=== PATIENT | female | born 1965 | race Caucasian/White ===

== ENCOUNTER → 2017-12-30 16:15 | Outpatient (REF) | payer BC, SELFPAY ==
[2017-12-30 20:51] LABS: Anion Gap 12.3 mmol/L (3-11); BUN 19 mg/dL (7-18); CO2 25.7 mmol/L (21.0-32.0); CREATININE 0.91 mg/dL (0.55-1.02); Calcium 9.4 mg/dL (8.5-10.1); Chloride 101 mmol/L (98-107); Glucose 102 mg/dL (70-100); Potassium 3.6 mmol/L (3.5-5.1); Sodium 139 mmol/L (136-145); TSH (W/Ref FT4) 1.12 uIU/mL (0.358-3.74)
== END ==
LOC: NCHCN 16:15
PROVIDERS: PCP Family Medicine; Visit Provider Family Medicine
DX: E03.9 Hypothyroidism, unspecified (principal); I10 Essential (primary) hypertension
CPT/HCPCS: 80048; 84443

== ENCOUNTER 2018-01-16 01:54 | Outpatient (CLI) | payer BC, SELFPAY ==
--- NOTE | 2018-01-16 15:45 | DI.MAMMO_ITS ---
SYMPTOMS/DIAGNOSIS: SCREENING, Z12.31 MAMMOGRAM: Mammograms were interpreted according to the usual protocol including computer analysis with CAD system, tomosynthesis and C view imaging. Comparison is made with exams from 2012 through 2017. The breasts are composed of scattered fibroglandular densities, breast density Category B. No suspicious masses or suspicious microcalcifications are seen. There has been no significant change. IMPRESSION: Category I B, negative mammogram. Routine screening is recommended. [facility] ASSESSMENT OF FINDINGS: Negative. Category 1. Patient will receive a letter notifying them of these results. BI-RADS category B. There are scattered areas of fibroglandular density.
== END 2018-01-16 02:14 ==
PROVIDERS: PCP Family Medicine; Visit Provider Family Medicine
DX: Z12.31 Encounter for screening mammogram for malignant neoplasm of breast (principal)
CPT/HCPCS: 77063; 77067

== ENCOUNTER 2019-01-02 12:23 | Outpatient (REF) | payer BC, SELFPAY ==
[2019-01-02 14:00] LABS: Hemoglobin A1C 5.6 % (4.5-6.2)
[2019-01-02 14:22] LABS: Anion Gap 12.9 mmol/L (3-11); BUN 18 mg/dL (7-18); CO2 25.1 mmol/L (21.0-32.0); CREATININE 0.79 mg/dL (0.55-1.02); Calcium 9.4 mg/dL (8.5-10.1); Calculated LDL 161 mg/dL; Chloride 103 mmol/L (98-107); Cholesterol 231 mg/dL (50-200); Glucose 112 mg/dL (70-100); HDL Cholesterol 52 mg/dL (40-60); Potassium 3.8 mmol/L (3.5-5.1); Sodium 141 mmol/L (136-145); TSH (W/Ref FT4) 1.33 uIU/mL (0.36-3.74); Triglyceride 93 mg/dL (30-150)
== END 2019-01-02 12:43 ==
LOC: NCHCN 12:23
PROVIDERS: PCP Family Medicine; Visit Provider Family Medicine
DX: I10 Essential (primary) hypertension (principal); E03.9 Hypothyroidism, unspecified; R73.03 Prediabetes
CPT/HCPCS: 80048; 80061; 83721; 83036; 84443

== ENCOUNTER 2019-01-23 01:32 | Outpatient (CLI) | payer BC, SELFPAY ==
--- NOTE | 2019-01-23 15:52 | DI.MAMMO_ITS ---
SYMPTOM/DIAGNOSIS: SCREENING, Z12.31 MAMMOGRAMS: Mammograms were interpreted according to the usual protocol including computer analysis with CAD system, tomosynthesis and C view imaging. The breast tissue is of moderate radiodensity. There is no evidence of a dominant mass. There are no suspicious calcifications and there has been no significant interval change when compared with prior images. IMPRESSION: No evidence of malignancy, category 1. Yearly screening mammography is recommended. Breast density, Category B. [facility] ASSESSMENT OF FINDINGS: Negative. Category 1. Patient will receive a letter notifying them of these results. BI-RADS category B. There are scattered areas of fibroglandular density.
== END 2019-01-23 01:52 ==
PROVIDERS: PCP Family Medicine; Visit Provider Family Medicine
DX: Z12.31 Encounter for screening mammogram for malignant neoplasm of breast (principal)
CPT/HCPCS: 77063; 77067

== ENCOUNTER 2020-01-29 15:08 | Outpatient (REF) | payer BC, SELFPAY ==
[2020-01-29 21:44] LABS: Hemoglobin A1C 5.5 % (<5.7)
[2020-01-29 22:22] LABS: Anion Gap 11.4 mmol/L (3-11); BUN 13 mg/dL (7-18); CO2 27.6 mmol/L (21.0-32.0); CREATININE 0.82 mg/dL (0.55-1.02); Chloride 99 mmol/L (98-107); Glucose 91 mg/dL (74-106); Potassium 3.5 mmol/L (3.5-5.1); Sodium 138 mmol/L (136-145)
== END 2020-01-29 15:28 ==
LOC: NCHCN 15:08
PROVIDERS: PCP Family Medicine; Visit Provider Family Medicine
DX: E03.9 Hypothyroidism, unspecified (principal); I10 Essential (primary) hypertension; R73.03 Prediabetes
CPT/HCPCS: 80048; 83036; 84443

== ENCOUNTER 2020-12-29 17:51 | Outpatient (REF) | payer BC, SELFPAY ==
[2020-12-29 16:01] LABS: Anion Gap 10.1 mmol/L (3-11); BUN 18 mg/dL (7-18); CO2 28.9 mmol/L (21.0-32.0); CREATININE 0.8 mg/dL (0.55-1.02); Calcium 9.3 mg/dL (8.5-10.1); Chloride 103 mmol/L (98-107); Glucose 113 mg/dL (74-106); Potassium 3.8 mmol/L (3.5-5.1); Sodium 142 mmol/L (136-145)
[2020-12-29 16:07] LABS: Hemoglobin A1C 5.9 % (<5.7)
== END 2020-12-29 17:52 | disposition home or self-care (01) ==
LOC: NCHCN 17:51
PROVIDERS: PCP Family Medicine; Visit Provider Family Medicine
DX: I10 Essential (primary) hypertension (principal); R73.03 Prediabetes
CPT/HCPCS: 80048; 83036

== ENCOUNTER 2021-02-03 19:45 | Outpatient (REF) | payer BC, SELFPAY ==
--- NOTE | 2021-02-03 14:15 | PAPFT_PTH ---
PATIENT: Trace Villegas LOC: [facility] U#:[id number] AGE/SX: 55/F ROOM: RE02/03/[address]: Lili Miller : 1965 BED: DIS: 02/03/2021 SPEC #: [id number] RECD: 02/06/21 13:03 STATUS: DARLINE REJamie #: [id number] EMANUEL: 02/03/21 14:[address]: Lili Miller DEPT: [facility] Cytology RECD BY: Nadege Morgan Tissues: 1 - CX/ENDOCX FOR PAP SMEARS Procedures: PAP THIN PREP/UVM Screening HPV DNA PROBE Comments: [id number]
[2021-02-03 19:57] LABS: TSH (W/Ref FT4) 0.82 uIU/mL (0.36-3.74)
== END 2021-02-03 19:46 | disposition home or self-care (01) ==
LOC: NCHCN 19:45
PROVIDERS: PCP Family Medicine; Visit Provider Family Medicine
DX: Z12.4 Encounter for screening for malignant neoplasm of cervix (principal); Z11.51 Encounter for screening for human papillomavirus (HPV); Z01.419 Encounter for gynecological examination (general) (routine) without abnormal findings; Z00.00 Encounter for general adult medical examination without abnormal findings; E03.9 Hypothyroidism, unspecified
CPT/HCPCS: 88142; 84443; 87624

== ENCOUNTER 2021-03-23 01:09 | Outpatient (CLI) | payer BC, SELFPAY ==
--- NOTE | 2021-03-23 07:45 | DI.MAMMO_ITS ---
Exam(s) MAMMO SCREENING EXAM: MAMMO SCREENING CLINICAL HISTORY: SCREENING FOR BREAST CANCER Z12.31 TECHNIQUE: Mammograms were interpreted according to the usual protocol including computer analysis w [employer] CAD system, tomosynthesis and C-view imaging. COMPARISON: 2010 through 2018 FINDINGS: The breasts are composed of scattered fibroglandular densities, Breast Density category B. No suspicious masses or suspicious microcalcifications are seen. No skin thickening or abnormal axillary lymph nodes are seen. There has been no significant change from prior exams. IMPRESSION: BI-RADS Category 1, Negative mammogram Yearly screening mammography is recommended. Breast Density - Category B, scattered fibroglandular densities. A negative radiographic report should not delay biopsy if a dominant or clinically suspicious mass is present. Up to ten percent of cancers are not identified on mammography. A negative report may reinforce clinical impression. Adenosis and dense breasts may obscure an underlying neoplasm. False positive reports average 6 to 10%. Patient will receive a letter notifying them of these results.
== END 2021-03-23 01:29 ==
PROVIDERS: PCP Family Medicine; Visit Provider Family Medicine
DX: Z12.31 Encounter for screening mammogram for malignant neoplasm of breast (principal)
CPT/HCPCS: 77063; 77067

== ENCOUNTER 2021-04-12 00:48 | Outpatient (CLI) | payer BC, SELFPAY ==
--- NOTE | 2021-04-12 07:39 | DI.RAD_ITS ---
Exam(s) XR PELVIS AP EXAM: XR PELVIS AP CLINICAL HISTORY: iud migration,[id number]. TECHNIQUE: 2D digital imaging was performed. COMPARISON: No exams were available for comparison FINDINGS: BONES: No acute fracture is present. No bony destructive lesion is seen. JOINTS: No dislocation present. No joint space narrowing is present. Mild degenerative changes are se en in the lower lumbar spine. SOFT TISSUE: Normal. No IUD is identified. IMPRESSION: No IUD is visualized. Further evaluation may be obtained with a pelvic ultrasound, KUB or CT scan of the abdomen and pelvis. DATA REPOSITORY: RADIATION DOSE DELIVERED:
== END 2021-04-12 01:08 ==
PROVIDERS: PCP Family Medicine; Visit Provider Obstetrics & Gynecology
DX: T83.32XA Displacement of intrauterine contraceptive device, initial encounter (principal)
CPT/HCPCS: 72170

== ENCOUNTER 2021-07-18 01:49 | Outpatient (CLI) | payer BC, SELFPAY ==
--- NOTE | 2021-07-18 14:31 | DI.US_ITS ---
APPROVED REPORT EXAM: Comprehensive 2D, Doppler, and color-flow Echocardiogram Patient Location: Out-Patient Library Circulation Assistant: Joy Kurtz RDCS (AE) Indications: Tricuspid insufficiency Other Information Study Quality: Adequate Conclusion Normal left ventricular wall thickness and chamber size. Estimated ejection fraction is 60%. Wall m otion is normal Normal right ventricular size and systolic function Both atria are normal in size The aortic valve is trileaflet without stenosis or regurgitation Mild mitral annular calcification. Mild mitral regurgitation Normal tricuspid valve with trace to mild regurgitation. Estimated right ventricular systolic pressu re is normal at 25 mmHg Dilated ascending aorta measuring 3.74 cm Wall motion Left Ventricle The left ventricle is normal size. The left ventricular systolic function is normal. The left ventric ular ejection fraction is within the normal range. There is normal left ventricular wall thickness. T here is normal LV segmental wall motion. There is no ventricular septal defect visualized. LVEF is 60 %. Right Ventricle The right ventricle is normal size. The right ventricular systolic function is normal .The RVSP is 24 .9 mmHg. Atria The left atrium size is normal. The right atrium size is normal. The interatrial septum is intact wit h no evidence for an atrial septal defect. Aortic Valve The aortic valve is normal in structure. Aortic valve is trileaflet. There is no aortic valvular sten osis. No aortic regurgitation is present. Mitral Valve Mild mitral annular calcification. No evidence of mitral valve stenosis. Mild mitral regurgitation. Tricuspid Valve The tricuspid valve is normal in structure. There is no tricuspid valve stenosis. Trace to mild tricu spid regurgitation. Pulmonic Valve The pulmonary valve is normal in structure. There is no pulmonic valvular stenosis. Trace pulmonic re gurgitation. Great Vessels The aortic root is normal in size. The ascending aorta is mildly dilated.3.74 cm Aortic arch is kristen l in caliber. IVC is normal in size and collapses >50% with inspiration. Pericardium There is no pericardial effusion. 2D Dimensions IVSD d PLAX 1.01 cm F: 0.6-1.0 LV Vol A2C d MOD 145.3 mL LVPW d PLAX 1.03 cm F: 0.6 - 1.0 LV Vol A4C d MOD 132.7 mL LVID d PLAX 4.86 cm F: 3.8 - 5.2 LA vol/ BSA A2C s A-L 30.9 mL/m2 LVDs 3.30 cm F: 2.2 - 3.5 LA vol/ BSA A4C s A-L 27.4 mL/m2 Ao Root d 2.99 cm F: 2.7 - 3.3 LA Vol/ BSA Biplane s A-L 29.8 mL/m2 RA Area A4C 14.04 cm2 LA Area A4C s MOD 19.92 cm2 RA Vol/ BSA A4C s A-L 15.8 mL/m2 LA Area A2C s MOD 20.64 cm2 Ao Asc Diam d 3.74 cm F: 2.3 - 3.1 LV EF A4C MOD 60.6 % LV EF Teichholz 60.0 % LV EF A2C MOD 60.6 % LVEF (Bermeo's) 60.97 % F: 54 - 74 LV EF Biplane MOD 61.0 % LV Volume 102.37 mL F: 46 - 106 SV 86.62 mL LV Volume Index 45.29 mL/m2 F: 29 - 61 SV Index 38.22 mL/m2 LV Vol Biplane MOD 142.1 mL FS 31.95 % M-Mode TAPSE 2.39 cm (M/F) >1.7 LV Diastology MV E' medial 0.130 (>0.07 m/s) E/A Ratio 1.3 LV E/e MED 6.60 (<14) MV E Vmax 0.86 (0.4-1.3 m/s) MV E' lateral 0.101 (>0.1 m/s) MV A Vmax 0.65 (0.4-1.3 m/s) LV E/e LAT 8.50 (<14) MV E/A Ratio 1.27 MV E/E' medial 6.62 MV E/E' lateral 8.54 Aortic Valve LVOT Area 2.99 cm2 AoV Area Vmax 2.24 cm2 LVOT Vmax 1.27 m/s AoV Area/ BSA (Vmax) 0.99 cm2/m2 LVOT Mean Americo. 0.78 m/s COOKIE Mean Americo. 2.07 cm2 LVOT Peak Grad 6.4 mmHg COOKIE Mean Americo. Index 0.91 cm2/m2 LVOT Mean Grad 3.0 mmHg LVOT VTI 0.293 m LVOT Diam s 1.95 cm AoV Vmax 1.69 m/s Velocity Ratio 0.75 AoV Mean Americo. 1.13 m/s AoV Peak Grad 11.5 mmHg LVOT SV 87.63 mL AoV Mean Grad 5.8 mmHg AoV VTI 0.360 m AoV Area VTI 2.43 cm2 AoV Area/ BSA (VTI) 1.07 cm/m2 Mitral Valve MV DT 191 (160-240 msec) MR Vmax 4.06 m/s MV PHT 55 msec MR VTI 1.466 m MV Area PHT 3.98 cm2 MR Peak Grad 65.9 mmHg MV VTI 0.332 m MR Mean Grad 47.9 mmHg MV Area VTI 2.64 (4.0-6.0 cm2) Pulmonary Valve PV Vmax 1.03 (0.5-1.5 m/s) RVOT Peak Gr. 1.41 mmHg PV Peak Grad 4.3 mmHg RVOT Mean Gr. 0.60 mmHg PV Mean Grad 2.2 mmHg RVOT VTI 0.119 m PV VTI 0.224 m RVOT Vmax 0.59 m/s Tricuspid Valve TR Peak Grad 21.9 mmHg TR Vmax 2.34 m/s RA Pressure 3.00 mmHg RVSP (TR) 24.9 mmHg
== END 2021-07-18 02:09 ==
PROVIDERS: PCP Family Medicine; Visit Provider Family Medicine
DX: I36.1 Nonrheumatic tricuspid (valve) insufficiency (principal); I77.819 Aortic ectasia, unspecified site
CPT/HCPCS: 93306

== ENCOUNTER 2022-02-07 14:14 | Outpatient (REF) | payer SELFPAY ==
[2022-02-07 16:31] LABS: Hemoglobin A1C 5.6 % (<5.7)
[2022-02-07 17:37] LABS: Anion Gap 11.1 mmol/L (3-11); BUN 21 mg/dL (7-18); CO2 26.9 mmol/L (21.0-32.0); CREATININE 0.8 mg/dL (0.55-1.02); Calcium 9.5 mg/dL (8.5-10.1); Chloride 99 mmol/L (98-107); Estimated GFR 86.42 (mL/min/1.73m2); Glucose 85 mg/dL (74-106); Potassium 3.4 mmol/L (3.5-5.1); Sodium 137 mmol/L (136-145)
[2022-02-07 17:56] LABS: FREE T4 0.78 ng/dL (0.76-1.46)
== END 2022-02-07 14:15 | disposition home or self-care (01) ==
LOC: NCHCN 14:14
PROVIDERS: PCP Family Medicine; Visit Provider Family Medicine
DX: E03.9 Hypothyroidism, unspecified (principal); R73.03 Prediabetes; I10 Essential (primary) hypertension
CPT/HCPCS: 80048; 83036; 84439; 84443

== ENCOUNTER 2022-08-07 01:23 | Outpatient (CLI) | payer BC, SELFPAY ==
--- NOTE | 2022-08-07 | DI.MAMMO_ITS ---
Exam(s) MG MAMMO DIAGNOSTIC BI US BREAST LT LIMITED EXAM: MG MAMMO DIAGNOSTIC BI and U/S breast LT limited CLINICAL HISTORY: DIAGNOSTIC, LT BREAST LUMP, N63.0. TECHNIQUE: Craniocaudal and mediolateral oblique Full Field Digital Mammography views of the left br east with Computer Aided Diagnosis followed by Tomosynthesis and left breast ultrasound. COMPARISON: Comparison is made with prior examinations. FINDINGS: Mammography/Tomosynthesis: Masses/Architectural Distortion: There is an ovoid faint opacity in the upper inner quadrant of the l eft breast corresponding to the palpable abnormality. It measures approximately 1.7 cm. It is ill-d efined with no associated microcalcifications. There are no areas of architectural distortion. Microcalcifictions: No suspicious pleomorphic-type are seen. Skin Thickening/Nipple Retraction: None. Limited left breast US: Echotexture: Normal appearance of the glandular tissue. Shadowing: No suspicious foci. Cyst: There is an ovoid hypoechoic 1.4 x 1.4 x 0.4 cm lesion just beneath the skin surface at the 11 o'clock position 10 cm from the nipple. This corresponds to the palpable abnormality and the mammogr aphic abnormality. There does appear to be a communication to the skin surface. It does not involve the underlying breast tissue. Solid lesions: None seen. Ductal dilation: None. IMPRESSION: 1. No definite evidence of malignancy is noted. 2. Well-circumscribed 1.4 cm lesion just beneath the skin surface corresponding to the palpable abnor mality. This may represent a benign lesion such as an epidermal inclusion cyst 3. A 3 month follow-up left breast ultrasound is recommended for re-evaluation. 4. Findings were discussed with the patient on the date of the examination. BI-RADS Category 3 - Probably Benign Finding: Recommend follow-up imaging in 3 months Breast Density - Category B - Scattered areas of fibroglandular density Breast density category C or D implies that the patient has dense breast tissue. Dense breast tissue is very common and is not abnormal but dense breast tissue can make it harder to find cancer on a ma mmogram. Also, dense breast tissue may increase their breast cancer risk. This information about the result of the mammogram report was provided to the patient to raise their awareness. Use this report when you speak with the patient about their risks for breast cancer, which includes their family hist ory. At that time, you may recommend for more screening tests (Ultrasound or MRI) as they might be us eful based on their risk. A negative radiographic report should not delay biopsy if a dominant or clinically suspicious mass is present. Up to ten percent of cancers are not identified on mammography. A negative report may reinforce clinical impression. Adenosis and dense breasts may obscure an underlying neoplasm. False positive reports average 6 to 10%. Patient will receive a letter notifying them of these results.
== END 2022-08-07 01:43 ==
PROVIDERS: PCP Family Medicine; Visit Provider Family Medicine
DX: N63.22 Unspecified lump in the left breast, upper inner quadrant (principal)
CPT/HCPCS: 76642; 77062; 77066; G0279

== ENCOUNTER 2022-08-17 15:39 | Outpatient (REF) | payer BC, SELFPAY ==
[2022-08-17 18:23] LABS: Hemoglobin A1C 5.8 % (<5.7)
[2022-08-17 18:32] LABS: Anion Gap 11.5 mmol/L (3-11); BUN 22 mg/dL (7-18); CO2 27.5 mmol/L (21.0-32.0); CREATININE 0.7 mg/dL (0.55-1.02); Chloride 101 mmol/L (98-107); Estimated GFR 101.44 (mL/min/1.73m2); Glucose 105 mg/dL (74-106); Potassium 3.6 mmol/L (3.5-5.1); Sodium 140 mmol/L (136-145); TSH (W/Ref FT4) 0.72 uIU/mL (0.36-3.74)
== END 2022-08-17 15:40 | disposition home or self-care (01) ==
LOC: NCHCN 15:39
PROVIDERS: PCP Family Medicine; Visit Provider Family Medicine
DX: E03.9 Hypothyroidism, unspecified (principal); R73.03 Prediabetes; I10 Essential (primary) hypertension
CPT/HCPCS: 80048; 83036; 84443

== ENCOUNTER 2023-05-15 16:07 | Outpatient (REF) | payer BC, SELFPAY ==
--- OUTSIDE RECORDS SUMMARY | 2023-05-15 16:11 | XMS_ITS | Continuity of Care Document ---
Author Name Unknown Organization [facility] Ambulatory Clinics Address [address] [place] [address] Encounter [facility] NBR [id number] Date(s): 05/08/22 - 05/08/22 [facility] Ambulatory Clinics [address], [place] [address] Encounter Diagnosis Viral upper respiratory illness(Discharge Diagnosis) - 05/08/22 Wheezing(Discharge Diagnosis) - 05/08/22 Discharge Disposition: Home or Self Care Attending Physician: Jessie Briceño PA-C Allergies, Adverse Reactions, Alerts No Known Medication Allergies Functional Status 05/08/22 Other exposure to Infectious Disease Non e Medications Advil 200 mg oral tablet 400 mg = 2 tab, Oral, every 4 hr, PRN as needed for fever, # 120 tab, 0 Refill(s) Start Date: 05/08/22 Status: Ordered amLODIPine 10 mg oral tablet 10 mg = 1 tab, Oral, Daily, # 30 tab, 0 Refill(s) Start Date: 05/08/22 Status: Ordered chlorthalidone 25 mg oral tablet 25 mg = 1 tab, Oral, Daily, # 30 tab, 0 Refill(s) Start Date: 05/08/22 Status: Ordered levothyroxine 175 mcg (0.175 mg) oral tablet 175 mcg = 1 tab, Oral, Daily, # 30 tab, 0 Refill(s) Start Date: 05/08/22 Status: Ordered losartan 100 mg oral tablet 100 mg = 1 tab, Oral, Daily, # 30 tab, 0 Refill(s) Start Date: 05/08/22 Status: Ordered Mucinex 0 Refill(s) Start Date: 05/08/22 Status: Ordered predniSONE 20 mg oral tablet 40 mg = 2 tab, Oral, Daily, with food or milk in AM, # 10 tab, 0 Refill(s), Pharmacy: [facility] #[id number] Start Date: 05/08/22 Stop Date: 05/13/22 Status: Ordered Problem List No Known Problems Results Laboratory List Name Date SARS-CoV-2 (COVID-19) Antigen (Binax) PO CT 05/08/22 Most recent to oldest [Reference Range]: 1 SARS-CoV-2 (COVID-19) Ag (Binax) [Negati ve] Negative (05/08/22 9:44 AM) Vital Signs Most recent to oldest [Reference Range]: 1 Temperature Tympanic [36.6-37.9 Deg C] 3 6.5 Deg C *LOW* (05/08/22 10:14 AM) Peripheral Pulse Rate [60-100 bpm] 64 bp m (05/08/22 10:14 AM) Blood Pressure [90-140/60-90 mmHg] 159/9 8mmHg *HI* (05/08/22 10:14 AM) Weight 104.33 kg (05/08/22 10:14 AM) Weight Measured (lbs) 230.008 lb (05/08/22 10:14 AM) Height 172.72 cm (05/08/22 10:14 AM) Height/Length Measured (inches) 68 inch (05/08/22 10:14 AM) BSA Measured 2.24 m2 (05/08/22 10:14 AM) Body Mass Index 34.97 kg/m2 (05/08/22 10:14 AM) Social History Social History Type Response Tobacco Never tobacco user T obacco Use:. Sex Hospital Discharge Instructions Patient Education 05/08/2022 09:34:08 Cough, Adult Cough, Adult Coughing is a reflex that clears your throat and your airways (respiratory system). Coughing helps to heal and protect your lungs. It is normal to cough occasionally, but a cough that happens with other symptoms or lasts a long time may be a sign of a condition that needs treatment. An acute cough may only last 2???3 weeks, while a chronic cough may last 8 or more weeks. Coughing is commonly caused by: ??? Infection of the respiratory systemby viruses or bacteria. ??? Breathing in substances that irritate your lungs. ??? Allergies. ??? Asthma. ??? Mucus that runs down the back of your throat (postnasal drip). ??? Smoking. ??? Acid backing up from the stomach into the esophagus (gastroesophageal reflux). ??? Certain medicines. ??? Chronic lung problems. ??? Other medical conditions such as heart failure or a blood clot in the lung (pulmonary embolism). Follow these instructions at home: Medicines ??? Take hnbx-vbs-cmrdbvw and prescription medicines only as told by your health care provider. ??? Talk with your health care provider before you take a cough suppressant medicine. Lifestyle ??? Avoid cigarette smoke. Do not use any products that contain nicotine or tobacco, such as cigarettes, e-cigarettes, and chewing tobacco. If you need help quitting, ask your health care provider. ??? Drink enough fluid to keep your urine pale yellow. ??? Avoid caffeine. ??? Do not drink alcohol if your health care provider tells you not to drink. General instructions ??? Pay close attention to changes in your cough. Tell your health care provider about them. ??? Always cover your mouth when you cough. ??? Avoid things that make you cough, such as perfume, candles, cleaning products, or campfire or tobacco smoke. ??? If the air is dry, use a cool mist vaporizer or humidifier in your bedroom or your home to helploosen secretions. ??? If your cough is worse at night, try to sleep in a semi-upright position. ??? Rest as needed. ??? Keep all follow-up visits as told by your health care provider. This is important. Contact a health care provider if you: ??? Have new symptoms. ??? Cough up pus. ??? Have a cough that does not get better after 2???3 weeks or gets worse. ??? Cannot control your cough with cough suppressant medicines and you are losing sleep. ??? Have pain that gets worse or pain that is not helped with medicine. ??? Have a fever. ??? Have unexplained weight loss. ??? Have night sweats. Get help right away if: ??? You cough up blood. ??? You have difficulty breathing. ??? Your heartbeat is very fast. These symptoms may represent a serious problem that is an emergency. Do not wait to see if the symptoms will go away. Get medical help right away. Call your local emergency services (911 in the [place] Do not drive yourself to the hospital. Summary ??? Coughing is a reflex that clears your throat and your airways. It is normal to cough occasionally, but a cough that happens with other symptoms or lasts a long time may be a sign of a condition that needs treatment. ??? Take hdgz-mdx-bdmmggu and prescription medicines only as told by your health care provider. ??? Always cover your mouth when you cough. ??? Contact a health care provider if you have new symptoms or a cough that does not get better after 2???3 weeks or gets worse. This information is not intended to replace advice given to you by your health care provider. Make sure you discuss any questions you have with your health care provider. Document Revised: 05/18/2019 Document Reviewed: 05/18/2019 [employer] Patient Education ?? 2021 [employer]. Physician Outpatient Note * Jessie Briceño PA-C: PERFORM Event Display: Office Clinic Note Physician Authored Date: [id number] LINK REYES :1965 Age:56 years Sex:Female Visit Date:05/08/2022 Chief Complaint pt reports cough, headache, sinus symptoms symptoms started 5 days ago History of Present Illness Patient is a??56-year-old female??vaccinated against COVID and influenza??that presents to the urgent care office today with 5-day history of??runny nose, sore throat, sinus congestion, headache, cough and chest congestion. She has been taking??nqwe-wmx-arnpehe??sinus??decongestant??and Mucinex without any significant improvement in her symptoms. ??She has not had a fever, chills, body aches, nausea or vomiting. ??History of pneumonia and bronchitis. ??She has no chest pain or shortness of breath. ??Intermittent wheezing at bedtime. ??No recent antibiotic use.?? Works at the high school, multiple sick contacts. Physical Exam Vitals & Measurements T:??36.5?C ??(Tympanic)?? HR:??64??(Peripheral)?? BP:??159/98?? SpO2:??98%?? HT:??172.72??cm?? WT:??104.33??kg?? BMI:??34.97?? Pain Score:??3?? BSA:??2.24?? Acutely ill-appearing but in no acute distress, pleasant, reliable historian. No rash or diaphoresis. TMs are normal pearly agrcia. ??Posterior pharynx is normal. Clear rhinorrhea.?? Conjunctiva are clear. Lung sounds are clear in all lobes without any wheezing, rales or rhonchi. ??Normal respiratory rate, speaking full sentences. Medical Decision Making: Viral URI, intermittent wheezing, 5 days: This is a 56-year-old female??with 5- day history of??viral URI symptoms.?? Negative for COVID.?? She is currently afebrile, without chest pain shortness of breath or vomiting,??good clinical appearance, tolerating p.o. food and fluids.?? I am not suspiciousfor pneumonia at this point, chest x-ray was deferred. ??I will start her on a course of hpunpstnhz68 mg??x 5 days. Disposition home.??She has return precautions. Assessment/Plan 1.??Viral upper respiratory illness??J06.9 Ordered: predniSONE 20 mg oral tablet, 40 mg = 2 tab, Oral, Daily, with food or milk in AM, # 10 tab, 0 Refill(s), Pharmacy: [facility] #[id number] ?? 2.??Wheezing??R06.2 Ordered: predniSONE 20 mg oral tablet, 40 mg = 2 tab, Oral, Daily, with food or milk in AM, # 10 tab, 0 Refill(s), Pharmacy: [facility] #[id number] ?? Patient Education Cough, Adult Problem List/Past Medical History Ongoing No chronic problems Historical No qualifying data Medications Advil 200 mg oral tablet, 400 mg= 2 tab, Oral, every 4 hr, PRN amLODIPine 10 mg oral tablet, 10 mg= 1 tab, Oral, Daily chlorthalidone 25 mg oral tablet, 25 mg= 1 tab, Oral, Daily levothyroxine 175 mcg (0.175 mg) oral tablet, 175 mcg= 1 tab, Oral, Daily losartan 100 mg oral tablet, 100 mg= 1 tab, Oral, Daily Mucinex predniSONE 20 mg oral tablet, 40 mg= 2 tab, Oral, Daily Allergies No Known Medication Allergies Social History Electronic Cigarette/Vaping Electronic Cigarette Use: Never. Tobacco Never tobacco user Tobacco Use:. Electronically Signed on 05/08/22 10:34 AM Jessie Briceño PA-C Outpatient Summary note * Jessie Briceño PA-C: PERFORM Event Display: Ambulatory Patient Summary Authored Date: [id number] LINK REYES :1965 Age:56 years Sex:Female Visit Date:05/08/2022 Ambulatory Visit Instructions We would like to thank you for allowing us to assist you with your healthcare needs. The following includes patient education materials and information regarding your injury/illness. After you leave the office, you may get your health information including your test results, physician notes and discharge information by accessing your Patient Portal. If you do not have a patient portal account set up, please contact __. Medications What How Much When Why Instructions New predniSONE (predniSONE 20 mg oral tablet) 2 tab Oral (given by mouth) Every day Viral upper respiratory illness Wheezing Duration: 5 Days with food or milk in AM ?? Pickup at [facility] #[id number] Unchanged amLODIPine (amLODIPine 10 mg oral tablet) 1 tab Oral (given by mouth) Every day Unchanged chlorthalidone (chlorthalidone 25 mg oral tablet) 1 tab Oral (given by mouth) Every day Unchanged guaiFENesin (Mucinex) Unchanged ibuprofen (Advil 200 mg oral tablet) 2 tab Oral (given by mouth) Every 4 hours as needed for as needed for fever Unchanged levothyroxine (levothyroxine 175 mcg (0.175 mg) oral tablet) 1 tab Oral (given by mouth) Every day Unchanged losartan (losartan 100 mg oral tablet) 1 tab Oral (given by mouth) Every day Pharmacy Information [facility] #[id number]: [address], [place] [id number] [phone] Your Summary Your Diagnosis Viral upper respiratory illness Wheezing Tests Performed/Pending SARS-CoV-2 (COVID-19) Antigen (Binax) POCT Your Care Team Attending Physician - Jessie Briceño PA-C Allergies No Known Medication Allergies Education Materials Cough, Adult Coughing is a reflex that clears your throat and your airways (respiratory system). Coughing helps to heal and protect your lungs. It is normal to cough occasionally, but a cough that happens with other symptoms or lasts a long time may be a sign of a condition that needs treatment. An acute cough may only last 2???3 weeks, while a chronic cough may last 8 or more weeks. Coughing is commonly caused by: ? Infection of the respiratory systemby viruses or bacteria. ? Breathing in substances that irritate your lungs. ? Allergies. ? Asthma. ? Mucus that runs down the back of your throat (postnasal drip). ? Smoking. ? Acid backing up from the stomach into the esophagus (gastroesophageal reflux). ? Certain medicines. ? Chronic lung problems. ? Other medical conditions such as heart failure or a blood clot in the lung (pulmonary embolism). Follow these instructions at home: Medicines ? Take wyyd-vlu-xoipyts and prescription medicines only as told by your health care provider. ? Talk with your health care provider before you take a cough suppressant medicine. Lifestyle ? Avoid cigarette smoke. Do not use any products that contain nicotine or tobacco, such as cigarettes, e-cigarettes, and chewing tobacco. If you need help quitting, ask your health care provider. ? Drink enough fluid to keep your urine pale yellow. ? Avoid caffeine. ? Do not drink alcohol if your health care provider tells you not to drink. General instructions ? Pay close attention to changes in your cough. Tell your health care provider about them. ? Always cover your mouth when you cough. ? Avoid things that make you cough, such as perfume, candles, cleaning products, or campfire or tobacco smoke. ? If the air is dry, use a cool mist vaporizer or humidifier in your bedroom or your home to help loosen secretions. ? If your cough is worse at night, try to sleep in a semi-upright position. ? Rest as needed. ? Keep all follow-up visits as told by your health care provider. This is important. Contact a health care provider if you: ? Have new symptoms. ? Cough up pus. ? Have a cough that does not get better after 2???3 weeks or gets worse. ? Cannot control your cough with cough suppressant medicines and you are losing sleep. ? Have pain that gets worse or pain that is not helped with medicine. ? Have a fever. ? Have unexplained weight loss. ? Have night sweats. Get help right away if: ? You cough up blood. ? You have difficulty breathing. ? Your heartbeat is very fast. These symptoms may represent a serious problem that is an emergency. Do not wait to see if the symptoms will go away. Get medical help right away. Call your local emergency services (911 in the [place] Do not drive yourself to the hospital. Summary ? Coughing is a reflex that clears your throat and your airways. It is normal to cough occasionally, but a cough that happens with other symptoms or lasts a long time may be a sign of a condition that needs treatment. ? Take zopu-jku-zvitbht and prescription medicines only as told by your health care provider. ? Always cover your mouth when you cough. ? Contact a health care provider if you have new symptoms or a cough that does not get better after 2???3 weeks or gets worse. This information is not intended to replace advice given to you by your health care provider. Make sure you discuss any questions you have with your health care provider. Document Revised: 05/18/2019 Document Reviewed: 05/18/2019 Else[employer] Patient Education ?? 2021 [employer] Electronically Signed on: 05/08/2022 10:34 ESTSigned by:GEORGE
--- OUTSIDE RECORDS SUMMARY | 2023-05-15 16:11 | XMS_ITS | Continuity of Care Document ---
Author Name Unknown Organization [facility] Address [address] [place] [address] [facility] NBR [id number] Date(s): 11/22/22 - 11/22/22 [facility] [address], [place] [address] Encounter Diagnosis Fever(Discharge Diagnosis) - 11/22/22 Complicated UTI (urinary tract infection)(Discharge Diagnosis) - 11/22/22 Discharge Disposition: Home or Self Care Attending Physician: Philip Begum. KIRBY Admitting Physician: Philip Begum. PA Allergies, Adverse Reactions, Alerts No Known Medication Allergies Functional Status 11/22/22 Family Member Travel History No recent t ravel Recent Travel History No recent travel Other exposure to Infectious Disease Non e [...] 0 Refill(s) Start Date: 05/08/22 Status: Ordered Cipro 500 mg oral tablet 500 mg = 1 tab, Oral, every 12 hr, # 10 tab, 0 Refill(s), Pharmacy: [facility] #[id number] Start Date: 11/22/22 Stop Date: 11/27/22 Status: Ordered levothyroxine 175 mcg (0.175 mg) oral tablet 175 mcg = 1 tab, Oral, Daily, # 30 tab, 0 Refill(s) Start Date: 05/08/22 Status: Ordered losartan 100 mg oral tablet 100 mg = 1 tab, Oral, Daily, # 30 tab, 0 Refill(s) Start Date: 05/08/22 Status: Ordered Mucinex 0 Refill(s) Start Date: 05/08/22 Status: Ordered Problem List No Known Problems Vital Signs Most recent to oldest [Reference Range]: 1 Temperature Tympanic [36.6-37.9 Deg C] 3 6.3 Deg C *LOW* (11/22/22 12:04 PM) Peripheral Pulse Rate [60-100 bpm] 87 bp m (11/22/22 12:04 PM) Blood Pressure [90-140/60-90 mmHg] 145/7 7mmHg *HI* (11/22/22 12:04 PM) Weight 113.4 kg (11/22/22 12:04 PM) Weight Measured (lbs) 250.004 lb (11/22/22 12:04 PM) Social History Social History Type Response Tobacco Never tobacco user T obacco Use:. Sex Hospital Discharge Instructions Patient Education 11/22/2022 12:11:19 Urinary Tract Infection, Adult Urinary Tract Infection, Adult A urinary tract infection (UTI) is an infection of any part of the urinary tract. The urinary tractincludes the kidneys, ureters, bladder, and urethra. These organs make, store, and get rid of urinein the body. An upper UTI affects the ureters and kidneys. A lower UTI affects the bladder and urethra. What are the causes? Most urinary tract infections are caused by bacteria in your genital area around your urethra, where urine leaves your body. These bacteria grow and cause inflammation of your urinary tract. What increases the risk? You are more likely to develop this condition if: ??? You have a urinary catheter that stays in place. ??? You are not able to control when you urinate or have a bowel movement (incontinence). ??? You are female and you: ??? Use a spermicide or diaphragm for control. ??? Have low estrogen levels. ??? Are . ??? You have certain genes that increase your risk. ??? You are sexually active. ??? You take antibiotic medicines. ??? You have a condition that causes your flow of urine to slow down, such as: ??? An enlarged prostate, if you are male. ??? Blockage in your urethra. ??? A kidney stone. ??? A nerve condition that affects your bladder control (neurogenic bladder). ??? Not getting enough to drink, or not urinating often. ??? You have certain medical conditions, such as: ??? Diabetes. ??? A weak disease-fighting system (immunesystem). ??? Sickle cell disease. ??? Gout. ??? Spinal cord injury. What are the signs or symptoms? Symptoms of this condition include: ??? Needing to urinate right away (urgency). ??? Frequent urination. This may include small amounts of urine each time you urinate. ??? Pain or burning with urination. ??? Blood in the urine. ??? Urine that smells bad or unusual. ??? Trouble urinating. ??? Cloudy urine. ??? Vaginal discharge, if you are female. ??? Pain in the abdomen or the lower back. You may also have: ??? Vomiting or a decreased appetite. ??? Confusion. ??? Irritability or tiredness. ??? A fever or chills. ??? Diarrhea. The first symptom in older adults may be confusion. In some cases, they may not have any symptoms until the infection has worsened. How is this diagnosed? This condition is diagnosed based on your medical history and a physical exam. You may also have other tests, including: ??? Urine tests. ??? Blood tests. ??? Tests for STIs (sexually transmitted infections). If you have had more than one UTI, a cystoscopy or imaging studies may be done to determine the cause of the infections. How is this treated? Treatment for this condition includes: ??? Antibiotic medicine. ??? Xfqz-aze-ngldacb medicines to treat discomfort. ??? Drinking enough water to stay hydrated. If you have frequent infections or have other conditions such as a kidney stone, you may need to see a health care provider who specializes in the urinary tract (urologist). In rare cases, urinary tract infections can cause sepsis. Sepsis is a life- threatening condition that occurs when the body responds to an infection. Sepsis is treated in the hospital with IV antibiotics, fluids, and other medicines. Follow these instructions at home: Medicines ??? Take rocn-wsv-bzhhvyf and prescription medicines only as told by your health care provider. ??? If you were prescribed an antibiotic medicine, take it as told by your health care provider. Donot stop using the antibiotic even if you start to feel better. General instructions ??? Make sure you: ??? Empty your bladder often and completely. Do not hold urine for long periods of time. ??? Empty your bladder after sex. ??? Wipe from front to back after urinating or having a bowel movement if you are female. Use each tissue only one time when you wipe. ??? Drink enough fluid to keep your urine pale yellow. ??? Keep all follow-up visits. This is important. Contact a health care provider if: ??? Your symptoms do not get better after 1???2 days. ??? Your symptoms go away and then return. Get help right away if: ??? You have severe pain in your back or your lower abdomen. ??? You have a fever or chills. ??? You have nausea or vomiting. Summary ??? A urinary tract infection (UTI) is an infection of any part of the urinary tract, which includes the kidneys, ureters, bladder, and urethra. ??? Most urinary tract infections are caused by bacteria in your genital area. ??? Treatment for this condition often includes antibiotic medicines. ??? If you were prescribed an antibiotic medicine, take it as told by your health care provider. Donot stop using the antibiotic even if you start to feel better. ??? Keep all follow-up visits. This is important. This information is not intended to replace advice given to you by your health care provider. Make sure you discuss any questions you have with your health care provider. Document Revised: 12/09/2020 Document Reviewed: 12/09/2020 [employer] Patient Education ?? 2022 [employer] Physician Outpatient Note * Philip Begum. KIRBY: PERFORM Event Display: Office Clinic Note Physician Authored Date: [id number] LINK REYES Shital :1965 Age:57 years Sex:Female Visit Date:11/22/2022 Chief Complaint Pain is shoulders and head. No sore throat, no cough.Cold chills. Fever of 101. x 3 days. Been taking Advil. ??Cloudy urine. History of Present Illness Patient started 3 days ago with muscle aches, chills and fever Tmax 101.?? Using ibuprofen.?? She denies any known contacts. ??No COVID exposures. ??No other household members??with illness.?? She denies any runny nose, sore throat, nausea, vomiting, chest pain, shortness of breath. ??Denies any dysuria urgency or frequency. ??No vaginal discharge. ??She is postmenopausal.?? Denies any hematuria.?? No diarrhea,??bloody stools.?? Denies any recent travel.?? No rash or??joint aches.?? She denies any history of similar.?? No recent antibiotic use.?? Otherwise has been in her usual state of health.?? She notes some dizziness when she changes position.?? Denies any vision changes. Physical Exam Vitals & Measurements T:??36.3?C ??(Tympanic)?? HR:??87??(Peripheral)?? BP:??145/77?? SpO2:??97%?? WT:??113.4??kg?? Pain Score:??7?? General: Alert and oriented, well nourished, no acute distress. Eye:??Pupils are reactive, conjunctiva clear. HENT: Normocephalic, clear tympanic membranes, throat clear no exudate and uvula is midline Neck: Supple, non-tender, no lymphadenopathy Lungs: Clear to auscultation and percussion, non-labored respiration. Heart: Normal rate, regular rhythm, no murmur, gallop or edema. Abdomen: Soft, non-tender, non-distended, no masses, no CVA tenderness. Musculoskeletal: Normal range of motion and strength, no tenderness or swelling. Skin: Skin is warm, dry, no rashes or lesions in examined areas. Neurologic: Awake, alert and oriented X3, normal cognition and interaction. Psychiatric: Cooperative, appropriate mood and affect. Assessment/Plan 1.??Fever??R50.9 Fever??with minimal symptoms. ??No focal symptoms. ??No upper respiratory symptoms. ??No dysuria.??Urine does show white blood cells and small amount of red cells.?? CBC shows slightly elevated white blood cell count.?? At this time given her urine findings I do suspect she may have a early mild py elonephritis.?? Start ciprofloxacin. ??Urine culture is pending.?? She is aware if she is at all worse she should go to the nearest emergency department this evening.?? Maintain good hydration.?? Sheis not orthostatic. ??Blood pressure??normal.?? No hypotension.?? She is nontoxic-appearing. Ordered: Cipro 500 mg oral tablet, 500 mg = 1 tab, Oral, every 12 hr, # 10 tab, 0 Refill(s), Pharmacy: [facility] #[id number] Urine Culture, Urine, Clean Catch, Routine collect, RT - Routine, 11/22/22, Once, Nurse collect, Fever, Order for future visit ?? 2.??Complicated UTI (urinary tract infection)??N39.0 Ordered: Cipro 500 mg oral tablet, 500 mg = 1 tab, Oral, every 12 hr, # 10 tab, 0 Refill(s), Pharmacy: [facility] #[id number] ?? Patient Instructions Start antibiotics, maintain good hydration. ??Emergency department if you are worse??or not improving over the next 24 to 36 hours.?? Symptoms to watch for are??uncontrolled fever, vomiting, inability to maintain hydration, blood in your urine. Future Orders Urine Culture, Urine, Clean Catch, Routine collect, RT - Routine, 11/22/22, Once, Nurse collect, Fever, Order for future visit Patient Education Urinary Tract Infection, Adult Problem List/Past Medical History Ongoing No chronic problems Historical No qualifying data Medications Advil 200 mg oral tablet, 400 mg= 2 tab, Oral, every 4 hr, PRN amLODIPine 10 mg oral tablet, 10 mg= 1 tab, Oral, Daily chlorthalidone 25 mg oral tablet, 25 mg= 1 tab, Oral, Daily Cipro 500 mg oral tablet, 500 mg= 1 tab, Oral, every 12 hr levothyroxine 175 mcg (0.175 mg) oral tablet, 175 mcg= 1 tab, Oral, Daily losartan 100 mg oral tablet, 100 mg= 1 tab, Oral, Daily Mucinex Allergies No Known Medication Allergies Social History Electronic Cigarette/Vaping Electronic Cigarette Use: Never. Tobacco Never tobacco user Tobacco Use:. Electronically Signed on 11/22/22 01:17 PM Philip ORR Outpatient Summary note * Philip Begum. KIRBY: PERFORM Event Display: Ambulatory Patient Summary Authored Date: [id number] LINK REYES :1965 Age:57 years Sex:Female Visit Date:11/22/2022 Ambulatory Visit Instructions We would like to thank you for allowing us to assist you with your healthcare needs. The following includes patient education materials and information regarding your injury/illness. Your Next Steps Instructions From Your Care Team Start antibiotics, maintain good hydration. ??Emergency department if you are worse??or not improving over the next 24 to 36 hours.?? Symptoms to watch for are??uncontrolled fever, vomiting, inability to maintain hydration, blood in your urine. You Need to Complete the Following Urine Culture, Urine, Clean Catch, Routine collect, RT - Routine, 11/22/22, Once, Nurse collect, Fever, Order for future visit Medications What How Much When Why Instructions New ciprofloxacin (Cipro 500 mg oral tablet) 1 tab Oral (given by mouth) Every 12 hours Fever Complicated UTI (urinary tract infection) Duration: 5 Days Pickup at [facility] #[id number] Unchanged amLODIPine (amLODIPine 10 mg oral tablet) [...] (given by mouth) Every day Pharmacy Information [facility] #[id number]: [address], [place] [id number] [phone] Your Summary Your Diagnosis Fever Complicated UTI (urinary tract infection) Your Care Team Admitting Physician - Philip Begum. KIRBY Attending Physician - Philip ORR Discharge Vitals Temperature??(Tympanic) 97.3 ??F (36.3 ??C) Heart Rate??(Peripheral) 87 Blood Pressure?? 145/77?? Weight?? 250.05 lb (113.4 kg) Allergies No Known Medication Allergies Education Materials Urinary Tract Infection, Adult A urinary tract infection (UTI) is an infection of any part of the urinary tract. The urinary tractincludes the kidneys, ureters, bladder, and urethra. These organs make, store, and get rid of urinein the body. An upper UTI affects the ureters and kidneys. A lower UTI affects the bladder and urethra. What are the causes? Most urinary tract infections are caused by bacteria in your genital area around your urethra, where urine leaves your body. These bacteria grow and cause inflammation of your urinary tract. What increases the risk? You are more likely to develop this condition if: ? You have a urinary catheter that stays in place. ? You are not able to control when you urinate or have a bowel movement (incontinence). ? You are female and you: ? Use a spermicide or diaphragm for control. ? Have low estrogen levels. ? Are . ? You have certain genes that increase your risk. ? You are sexually active. ? You take antibiotic medicines. ? You have a condition that causes your flow of urine to slow down, such as: ? An enlarged prostate, if you are male. ? Blockage in your urethra. ? A kidney stone. ? A nerve condition that affects your bladder control (neurogenic bladder). ? Not getting enough to drink, or not urinating often. ? You have certain medical conditions, such as: ? Diabetes. ? A weak disease-fighting system (immunesystem). ? Sickle cell disease. ? Gout. ? Spinal cord injury. What are the signs or symptoms? Symptoms of this condition include: ? Needing to urinate right away (urgency). ? Frequent urination. This may include small amounts of urine each time you urinate. ? Pain or burning with urination. ? Blood in the urine. ? Urine that smells bad or unusual. ? Trouble urinating. ? Cloudy urine. ? Vaginal discharge, if you are female. ? Pain in the abdomen or the lower back. You may also have: ? Vomiting or a decreased appetite. ? Confusion. ? Irritability or tiredness. ? A fever or chills. ? Diarrhea. The first symptom in older adults may be confusion. In some cases, they may not have any symptoms until the infection has worsened. How is this diagnosed? This condition is diagnosed based on your medical history and a physical exam. You may also have other tests, including: ? Urine tests. ? Blood tests. ? Tests for STIs (sexually transmitted infections). If you have had more than one UTI, a cystoscopy or imaging studies may be done to determine the cause of the infections. How is this treated? Treatment for this condition includes: ? Antibiotic medicine. ? Dtfr-kii-axrbqwr medicines to treat discomfort. ? Drinking enough water to stay hydrated. If you have frequent infections or have other conditions such as a kidney stone, you may need to see a health care provider who specializes in the urinary tract (urologist). In rare cases, urinary tract infections can cause sepsis. Sepsis is a life- threatening condition that occurs when the body responds to an infection. Sepsis is treated in the hospital with IV antibiotics, fluids, and other medicines. Follow these instructions at home: Medicines ? Take iigh-xjr-ibczena and prescription medicines only as told by your health care provider. ? If you were prescribed an antibiotic medicine, take it as told by your health care provider. Do notstop using the antibiotic even if you start to feel better. General instructions ? Make sure you: ? Empty your bladder often and completely. Do not hold urine for long periods of time. ? Empty your bladder after sex. ? Wipe from front to back after urinating or having a bowel movement if you are female. Use each tissue only one time when you wipe. ? Drink enough fluid to keep your urine pale yellow. ? Keep all follow-up visits. This is important. Contact a health care provider if: ? Your symptoms do not get better after 1???2 days. ? Your symptoms go away and then return. Get help right away if: ? You have severe pain in your back or your lower abdomen. ? You have a fever or chills. ? You have nausea or vomiting. Summary ? A urinary tract infection (UTI) is an infection of any part of the urinary tract, which includes the kidneys, ureters, bladder, and urethra. ? Most urinary tract infections are caused by bacteria in your genital area. ? Treatment for this condition often includes antibiotic medicines. ? If you were prescribed an antibiotic medicine, take it as told by your health care provider. Do notstop using the antibiotic even if you start to feel better. ? Keep all follow-up visits. This is important. This information is not intended to replace advice given to you by your health care provider. Make sure you discuss any questions you have with your health care provider. Document Revised: 12/09/2020 Document Reviewed: 12/09/2020 [employer] Patient Education ?? 2022 [employer] Electronically Signed on: 11/22/2022 13:12 EDTSigned by:DEAN Patient Care team information Care Team Related Persons Name: EMMANUELLE CAZARES Name: EMMANUELLE CAZARES Name: CLEVELAND REYES Address: Home [address] [place] [phone] [facility] Name: CLEVELAND REYES Address: Home [address] [place] [phone] [facility]
--- OUTSIDE RECORDS SUMMARY | 2023-05-15 16:11 | XMS_ITS | Continuity of Care Document ---
Author Name Unknown Organization [facility] Address [address] [place] [address] Encounter LTTL_AL FIN NBR [id number] Date(s): 11/24/22 - 11/24/22 [facility] [address] [place], [place] [address] Encounter Diagnosis Headache(Discharge Diagnosis) - 11/24/22 Discharge Disposition: Home or Self Care Attending Physician: Arpan Morrison MD Admitting Physician: Arpan Morrison MD Allergies, Adverse Reactions, Alerts No Known Medication Allergies Functional Status 11/24/22 Other exposure to Infectious Disease Non e [...] # 10 tab, 0 Refill(s), Pharmacy: [facility] #[id number] Start Date: 11/22/22 Stop Date: 11/27/22 Status: Ordered levothyroxine 175 mcg (0.175 mg) oral tablet 175 mcg = 1 tab, Oral, Daily, # 30 tab, 0 Refill(s) Start Date: 05/08/22 Status: Ordered losartan 100 mg oral tablet 100 mg = 1 tab, Oral, Daily, # 30 tab, 0 Refill(s) Start Date: 05/08/22 Status: Ordered Mucinex 0 Refill(s) Start Date: 05/08/22 Status: Ordered Mental Status 11/24/22 Eye Opening Response Bubba Spontaneous ly Best Verbal Response Bbuba Oriented Best Motor Response Bubba Obeys comman ds [place] Coma Score 15 Problem List No Known Problems Vital Signs Most recent to oldest [Reference Range]: 1 Temperature Oral [35.8-37.3 Deg C] 37.2 Deg C (11/24/22 7:37 AM) Peripheral Pulse Rate [60-100 bpm] 73 bp m (11/24/22 7:37 AM) Respiratory Rate [12-24 br/min] 16 br/mi n (11/24/22 7:37 AM) Blood Pressure [90-140/60-90 mmHg] 158/8 0mmHg *HI* (11/24/22 7:37 AM) Weight Dosing 113.40 kg (11/24/22 7:47 AM) Weight Estimated 113.40 kg (11/24/22 7:37 AM) Height/Length Dosing 172.000 cm (11/24/22 7:47 AM) Height/Length Estimated 172.000 cm (11/24/22 7:37 AM) Social History Social History Type Response Tobacco Never tobacco user T obacco Use:. Sex Hospital Discharge Instructions Patient Education 11/24/2022 08:18:06 General Headache Without Cause General Headache Without Cause A headache is pain or discomfort felt around the head or neck area. There are many causes and typesof headaches. A few common types include: ??? Tension headaches. ??? Migraine headaches. ??? Cluster headaches. ??? Chronic daily headaches. Sometimes, the specific cause of a headache may not be found. Follow these instructions at home: Watch your condition for any changes. Let your health care provider know about them. Take these steps to help with your condition: Managing pain ??? Take wrhy-lix-cunxkvc and prescription medicines only as told by your health care provider. Treatment may include medicines for pain that are taken by mouth or applied to the skin. ??? Lie down in a dark, quiet room when you have a headache. ??? Keep lights dim if bright lights bother you or make your headaches worse. ??? If directed, put ice on your head and neck area: ??? Put ice in a plastic bag. ??? Place a towel between your skin and the bag. ??? Leave the ice on for 20 minutes, 2???3 times per day. ??? Remove the ice if your skin turns bright red. This is very important. If you cannot feel pain, heat, or cold, you have a greater risk of damage to the area. ??? If directed, apply heat to the affected area. Use the heat source that your health care provider recommends, such as a moist heat pack or a heating pad. ??? Place a towel between your skin and the heat source. ??? Leave the heat on for 20???30 minutes. ??? Remove the heat if your skin turns bright red. This is especially important if you are unable to feel pain, heat, or cold. You have a greater risk of getting burned. Eating and drinking ??? Eat meals on a regular schedule. ??? If you drink alcohol: ??? Limit how much you have to: ??? 0???1 drink a day for women who are not . ??? 0???2 drinks a day for men. ??? Know how much alcohol is in a drink. In the [place] one drink equals one 12 oz bottle of beer (355 mL), one 5 oz glass of wine (148 mL), or one 1?? oz glass of hard liquor (44 mL). ??? Stop drinking caffeine, or decrease the amount of caffeine you drink. ??? Drink enough fluid to keep your urine pale yellow. General instructions ??? Keep a headache journal to help find out what may trigger your headaches. For example, write down: ??? What you eat and drink. ??? How much sleep you get. ??? Any change to your diet or medicines. ??? Try massage or other relaxation techniques. ??? Limit stress. ??? Sit up straight, and do not tense your muscles. ??? Do not use any products that contain nicotine or tobacco. These products include cigarettes, chewing tobacco, and vaping devices, such as e-cigarettes. If you need help quitting, ask your health care provider. ??? Exercise regularly as told by your health care provider. ??? Sleep on a regular schedule. Get 7???9 hours of sleep each night, or the amount recommended by your health care provider. ??? Keep all follow-up visits. This is important. Contact a health care provider if: ??? Medicine does not help your symptoms. ??? You have a headache that is different from your usual headache. ??? You have nausea or you vomit. ??? You have a fever. Get help right away if: ??? Your headache: ??? Becomes severe quickly. ??? Gets worse after moderate to intense physical activity. ??? You have any of these symptoms: ??? Repeated vomiting. ??? Pain or stiffness in your neck. ??? Changes to your vision. ??? Pain in an eye or ear. ??? Problems with speech. ??? Muscular weakness or loss of muscle control. ??? Loss of balance or coordination. ??? You feel faint or pass out. ??? You have confusion. ??? You have a seizure. These symptoms may represent a serious problem that is an emergency. Do not wait to see if the symptoms will go away. Get medical help right away. Call your local emergency services (911 in the [place] Do not drive yourself to the hospital. Summary ??? A headache is pain or discomfort felt around the head or neck area. ??? There are many causes and types of headaches. In some cases, the cause may not be found. ??? Keep a headache journal to help find out what may trigger your headaches. Watch your condition for any changes. Let your health care provider know about them. ??? Contact a health care provider if you have a headache that is different from the usual headache, or if your symptoms are not helped by medicine. ??? Get help right away if your headache becomes severe, you vomit, you have a loss of vision, you lose your balance, or you have a seizure. This information is not intended to replace advice given to you by your health care provider. Make sure you discuss any questions you have with your health care provider. Document Revised: 09/27/2021 Document Reviewed: 09/27/2021 Else[employer] Patient Education ?? 2022 [employer] Emergency department Discharge instructions * Tamiko SHAW, Arpan Elliott: PERFORM Event Display: ED Discharge Information Authored Date: [id number] ERICLINK Shital :1965 Age:57 years Sex:Female Visit Date:11/24/2022 Discharge Instructions We would like to thank you for allowing us to assist you with your healthcare needs. The following includes patient education materials and information regarding your injury/illness. Diagnosis from Today's Visit Headache Discharge Vitals Temperature??(Oral) 99.0 ??F (37.2 ??C) Heart Rate??(Peripheral) 73 Respiratory Rate?? 16 Blood Pressure?? 158/80?? Height?? 67.72 in (172.000 cm) Weight??(Estimated) 250.05 lb (113.40 kg) Allergies No Known Medication Allergies What to Do Next Instructions from Your Care Team Tylenol 1 g??up to 4 times a day;??ibuprofen 600 mg up to 4 times a day with food; as needed for pain. ??They work differently you can take them together if necessary.?? Complete course of antibiotics as directed??for urinary tract infection.?? Follow-up with your primary care provider if you have persistent headaches for further evaluation. You were treated today on an emergency basis; it may be ghosh to contact your primary care provider to notify them of your visit today. You may have been referred to your regular doctor or a specialist, please follow up as instructed. If your condition worsens or you can't get in to see the doctor, contact the Emergency Department. Medications What How Much When Why Instructions Next Dose Unchanged amLODIPine (amLODIPine 10 mg oral tablet) 1 tab Oral (given by mouth) Every day Unchanged chlorthalidone (chlorthalidone 25 mg oral tablet) 1 tab Oral (given by mouth) Every day Unchanged ciprofloxacin (Cipro 500 mg oral tablet) 1 tab Oral (given by mouth) Every 12 hours Fever Complicated UTI (urinary tract infection) Duration: 5 Days Unchanged guaiFENesin (Mucinex) Unchanged ibuprofen (Advil 200 mg oral tablet) 2 tab Oral (given by mouth) Every 4 hours as needed for as needed for fever Unchanged levothyroxine (levothyroxine 175 mcg (0.175 mg) oral tablet) 1 tab Oral (given by mouth) Every day Unchanged losartan (losartan 100 mg oral tablet) 1 tab Oral (given by mouth) Every day Education Materials General Headache Without Cause A headache is pain or discomfort felt around the head or neck area. There are many causes and typesof headaches. A few common types include: ? Tension headaches. ? Migraine headaches. ? Cluster headaches. ? Chronic daily headaches. Sometimes, the specific cause of a headache may not be found. Follow these instructions at home: Watch your condition for any changes. Let your health care provider know about them. Take these steps to help with your condition: Managing pain ? Take fzlv-nac-ymjftqy and prescription medicines only as told by your health care provider. Treatment may include medicines for pain that are taken by mouth or applied to the skin. ? Lie down in a dark, quiet room when you have a headache. ? Keep lights dim if bright lights bother you or make your headaches worse. ? If directed, put ice on your head and neck area: ? Put ice in a plastic bag. ? Place a towel between your skin and the bag. ? Leave the ice on for 20 minutes, 2???3 times per day. ? Remove the ice if your skin turns bright red. This is very important. If you cannot feel pain, heat, or cold, you have a greater risk of damage to the area. ? If directed, apply heat to the affected area. Use the heat source that your health care provider recommends, such as a moist heat pack or a heating pad. ? Place a towel between your skin and the heat source. ? Leave the heat on for 20???30 minutes. ? Remove the heat if your skin turns bright red. This is especially important if you are unable to feel pain, heat, or cold. You have a greater risk of getting burned. Eating and drinking ? Eat meals on a regular schedule. ? If you drink alcohol: ? Limit how much you have to: ? 0???1 drink a day for women who are not . ? 0???2 drinks a day for men. ? Know how much alcohol is in a drink. In the [place] one drink equals one 12 oz bottle of beer (355 mL), one 5 oz glass of wine (148 mL), or one 1?? oz glass of hard liquor (44 mL). ? Stop drinking caffeine, or decrease the amount of caffeine you drink. ? Drink enough fluid to keep your urine pale yellow. General instructions ? Keep a headache journal to help find out what may trigger your headaches. For example, write down: ? What you eat and drink. ? How much sleep you get. ? Any change to your diet or medicines. ? Try massage or other relaxation techniques. ? Limit stress. ? Sit up straight, and do not tense your muscles. ? Do not use any products that contain nicotine or tobacco. These products include cigarettes, chewing tobacco, and vaping devices, such as e-cigarettes. If you need help quitting, ask your health careprovider. ? Exercise regularly as told by your health care provider. ? Sleep on a regular schedule. Get 7???9 hours of sleep each night, or the amount recommended by yourhealth care provider. ? Keep all follow-up visits. This is important. Contact a health care provider if: ? Medicine does not help your symptoms. ? You have a headache that is different from your usual headache. ? You have nausea or you vomit. ? You have a fever. Get help right away if: ? Your headache: ? Becomes severe quickly. ? Gets worse after moderate to intense physical activity. ? You have any of these symptoms: ? Repeated vomiting. ? Pain or stiffness in your neck. ? Changes to your vision. ? Pain in an eye or ear. ? Problems with speech. ? Muscular weakness or loss of muscle control. ? Loss of balance or coordination. ? You feel faint or pass out. ? You have confusion. ? You have a seizure. These symptoms may represent a serious problem that is an emergency. Do not wait to see if the symptoms will go away. Get medical help right away. Call your local emergency services (911 in the [place] Do not drive yourself to the hospital. Summary ? A headache is pain or discomfort felt around the head or neck area. ? There are many causes and types of headaches. In some cases, the cause may not be found. ? Keep a headache journal to help find out what may trigger your headaches. Watch your condition for any changes. Let your health care provider know about them. ? Contact a health care provider if you have a headache that is different from the usual headache, orif your symptoms are not helped by medicine. ? Get help right away if your headache becomes severe, you vomit, you have a loss of vision, you loseyour balance, or you have a seizure. This information is not intended to replace advice given to you by your health care provider. Make sure you discuss any questions you have with your health care provider. Document Revised: 09/27/2021 Document Reviewed: 09/27/2021 [employer] Patient Education ?? 2022 [employer] Tests Performed Medications and Immunizations Administered Given acetaminophen, 1000 mg, Oral ketorolac, 30 mg, IM Patient/Energy Technician Signature Patient Name:LINK REYES I have received this information and my questions have been answered. Patient/Energy Technician Name: Patient/Energy Technician Signature: Relationship to Patient: Witness Name/Signature: Date: Electronically Signed on: 11/24/2022 09:18 EDTSigned by:YASEMIN Patient Care team information Care Team Personnel Name: Arpan Morrison MD Position: Physician Member Role: ED Physician Address: Address: [facility] [address] [place] [address] Name: Divya Laws RN Position: Nurse Member Role: ED Nurse Care Team Related Persons Name: EMMANUELLE CAZARES Name: EMMANUELLE CAZARES Name: EMMANUELLE CAZARES Name: CLEVELAND REYES Address: [address] [phone] [facility] Name: CLEVELAND REYES Address: Home [address] [place] [phone] [facility]
--- OUTSIDE RECORDS SUMMARY | 2023-05-15 16:12 | XMS_ITS | Continuity of Care Document ---
Author Name Unknown Organization [facility] Address [address] [place] [address] Encounter [facility] NBR [id number] Date(s): 03/26/23 - 03/26/23 [facility] [address], [place] [address] Encounter Diagnosis Sinusitis nasal(Discharge Diagnosis) - 03/26/23 Discharge Disposition: Home or Self Care Attending Physician: Marija Smith APRN Allergies, Adverse Reactions, Alerts No Known Medication Allergies Medications Advil 200 mg oral tablet 400 mg = 2 tab, Oral, every 4 hr, PRN as needed for fever, # 120 tab, 0 Refill(s) Start Date: 05/08/22 Status: Ordered amLODIPine 10 mg oral tablet 10 mg = 1 tab, Oral, Daily, # 30 tab, 0 Refill(s) Start Date: 05/08/22 Status: Ordered amoxicillin-clavulanate 875 mg-125 mg oral tablet 1 tab, Oral, every 12 hr, # 20 tab, 0 Refill(s), Pharmacy: [facility] #[id number], 172.72, cm, 03/26/23 16:40:00 EST, Height, 117.93, kg, 03/26/23 16:43:00 EST, Weight Dosing Start Date: 03/26/23 Stop Date: 04/05/23 Status: Ordered chlorthalidone 25 mg oral tablet 25 mg = 1 tab, Oral, Daily, # 30 tab, 0 Refill(s) Start Date: 05/08/22 Status: Ordered Cipro 500 mg oral tablet 500 mg = 1 tab, Oral, every 12 hr, # 10 tab, 0 Refill(s), Pharmacy: [facility] #[id number] Start Date: 11/22/22 Stop Date: 11/27/22 Status: Ordered Cipro 500 mg oral tablet 500 mg = 1 tab, Oral, every 12 hr, # 4 tab, 0 Refill(s), Pharmacy: [facility] #[id number], 172, cm, 11/24/22 7:47:00 EDT, Height/Length Dosing, 113.4, kg, 11/24/22 7:47:00 EDT, Weight Dosing Start Date: 11/26/22 Stop Date: 11/28/22 Status: Ordered levothyroxine 175 mcg (0.175 mg) [...] to oldest [Reference Range]: 1 Temperature Tympanic [36.6-38.1 Deg C] 3 6.3 Deg C *LOW* (03/26/23 4:40 PM) Peripheral Pulse Rate [60-100 bpm] 65 bp m (03/26/23 4:40 PM) Respiratory Rate [12-24 br/min] 17 br/mi n (03/26/23 4:40 PM) Blood Pressure [90-140/60-90 mmHg] 133/5 6mmHg (03/26/23 4:40 PM) Mean Arterial Pressure, Cuff [70-110 mmH g] 82 mmHg (03/26/23 4:40 PM) Weight 117.93 kg (03/26/23 4:40 PM) Weight Measured (lbs) 259.991 lb (03/26/23 4:40 PM) Weight Dosing 117.930 kg (03/26/23 4:40 PM) Height 172.72 cm (03/26/23 4:40 PM) Height/Length Measured (inches) 68 inch (03/26/23 4:40 PM) Body Mass Index 39.53 kg/m2 (03/26/23 4:40 PM) Social History Social History Type Response Tobacco Never tobacco user T obacco Use:. Sex Hospital Discharge Instructions Patient Education 03/26/2023 16:03:48 Sinus Infection, Adult Sinus Infection, Adult A sinus infection, also called sinusitis, is inflammation of your sinuses. Sinuses are hollow spaces in the bones around your face. Your sinuses are located: ??? Around your eyes. ??? In the middle of your forehead. ??? Behind your nose. ??? In your cheekbones. Mucus normally drains out of your sinuses. When your nasal tissues become inflamed or swollen, mucus can become trapped or blocked. This allows bacteria, viruses, and fungi to grow, which leads to infection. Most infections of the sinuses are caused by a virus. A sinus infection can develop quickly. It can last for up to 4 weeks (acute) or for more than 12 weeks (chronic). A sinus infection often develops after a cold. What are the causes? This condition is caused by anything that creates swelling in the sinuses or stops mucus from draining. This includes: ??? Allergies. ??? Asthma. ??? Infection from bacteria or viruses. ??? Deformities or blockages in your nose or sinuses. ??? Abnormal growths in the nose (nasal polyps). ??? Pollutants, such as chemicals or irritants in the air. ??? Infection from fungi. This is rare. What increases the risk? You are more likely to develop this condition if you: ??? Have a weak body defense system (immune system). ??? Do a lot of swimming or diving. ??? Overuse nasal sprays. ??? Smoke. What are the signs or symptoms? The main symptoms of this condition are pain and a feeling of pressure around the affected sinuses.Other symptoms include: ??? Stuffy nose or congestion that makes it difficult to breathe through your nose. ??? Thick yellow or greenish drainage from your nose. ??? Tenderness, swelling, and warmth over the affected sinuses. ??? A cough that may get worse at night. ??? Decreased sense of smell and taste. ??? Extra mucus that collects in the throat or the back of the nose (postnasal drip) causing a sorethroat or bad breath. ??? Tiredness (fatigue). ??? Fever. How is this diagnosed? This condition is diagnosed based on: ??? Your symptoms. ??? Your medical history. ??? A physical exam. ??? Tests to find out if your condition is acute or chronic. This may include: ??? Checking your nose for nasal polyps. ??? Viewing your sinuses using a device that has a light (endoscope). ??? Testing for allergies or bacteria. ??? Imaging tests, such as an MRI or CT scan. In rare cases, a bone biopsy may be done to rule out more serious types of fungal sinus disease. How is this treated? Treatment for a sinus infection depends on the cause and whether your condition is chronic or acute. ??? If caused by a virus, your symptoms should go away on their own within 10 days. You may be given medicines to relieve symptoms. They include: ??? Medicines that shrink swollen nasal passages (decongestants). ??? A spray that eases inflammation of the nostrils (topical intranasal corticosteroids). ??? Rinses that help get rid of thick mucus in your nose (nasal saline washes). ??? Medicines that treat allergies (antihistamines). ??? Crpb-ngz-vwlmpsf pain relievers. ??? If caused by bacteria, your health care provider may recommend waiting to see if your symptoms improve. Most bacterial infections will get better without antibiotic medicine. You may be given antibiotics if you have: ??? A severe infection. ??? A weak immune system. ??? If caused by narrow nasal passages or nasal polyps, surgery may be needed. Follow these instructions at home: Medicines ??? Take, use, or apply bgvw-byn-pyjckdy and prescription medicines only as told by your health care provider. These may include nasal sprays. ??? If you were prescribed an antibiotic medicine, take it as told by your health care provider. Donot stop taking the antibiotic even if you start to feel better. Hydrate and humidify ??? Drink enough fluid to keep your urine pale yellow. Staying hydrated will help to thin your mucus. ??? Use a cool mist humidifier to keep the humidity level in your home above 50%. ??? Inhale steam for 10???15 minutes, 3???4 times a day, or as told by your health care provider. You can do this in the bathroom while a hot shower is running. ??? Limit your exposure to cool or dry air. Rest ??? Rest as much as possible. ??? Sleep with your head raised (elevated). ??? Make sure you get enough sleep each night. General instructions ??? Apply a warm, moist washcloth to your face 3???4 times a day or as told by your health care provider. This will help with discomfort. ??? Use nasal saline washes as often as told by your health care provider. ??? Wash your hands often with soap and water to reduce your exposure to germs. If soap and water are not available, use hand superintendent oil field drilling. ??? Do not smoke. Avoid being around people who are smoking (secondhand smoke). ??? Keep all follow-up visits. This is important. Contact a health care provider if: ??? You have a fever. ??? Your symptoms get worse. ??? Your symptoms do not improve within 10 days. Get help right away if: ??? You have a severe headache. ??? You have persistent vomiting. ??? You have severe pain or swelling around your face or eyes. ??? You have vision problems. ??? You develop confusion. ??? Your neck is stiff. ??? You have trouble breathing. These symptoms may be an emergency. Get help right away. Call 911. ??? Do not wait to see if the symptoms will go away. ??? Do not drive yourself to the hospital. Summary ??? A sinus infection is soreness and inflammation of your sinuses. Sinuses are hollow spaces in the bones around your face. ??? This condition is caused by nasal tissues that become inflamed or swollen. The swelling traps or blocks the flow of mucus. This allows bacteria, viruses, and fungi to grow, which leads to infection. ??? If you were prescribed an antibiotic medicine, take it as told by your health care provider. Donot stop taking the antibiotic even if you start to feel better. ??? Keep all follow-up visits. This is important. This information is not intended to replace advice given to you by your health care provider. Make sure you discuss any questions you have with your health care provider. Document Revised: 04/03/2022 Document Reviewed: 04/03/2022 Elsevier Patient Education ?? 2022 [employer] Outpatient Summary note * Marija Smith, DRY PLACER MACHINE OPERATOR: PERFORM Event Display: Ambulatory Patient Summary Authored Date: [id number] LINK REYES :1965 Age:57 years Sex:Female Visit Date:03/26/2023 Ambulatory Visit Instructions We would like to thank you for allowing us to assist you with your healthcare needs. The following includes patient education materials and information regarding your injury/illness. Medications What How Much When Why Instructions New amoxicillin-clavulanate (amoxicillin- clavulanate 875 mg-125mg oral tablet) 1 tab Oral (given by mouth) Every 12 hours Duration: 10 Days Pickup at [facility] #[id number] Unchanged amLODIPine (amLODIPine 10 mg oral tablet) 1 tab Oral (given by mouth) Every day Unchanged chlorthalidone (chlorthalidone 25 mg oral tablet) 1 tab Oral (given by mouth) Every day Unchanged ciprofloxacin (Cipro 500 mg oral tablet) 1 tab Oral (given by mouth) Every 12 hours Fever Complicated UTI (urinary tract infection) Duration: 5 Days Unchanged ciprofloxacin (Cipro 500 mg oral tablet) 1 tab Oral (given by mouth) Every 12 hours Fever Complicated UTI (urinary tract infection) Duration: 2 Days Unchanged guaiFENesin (Mucinex) Unchanged ibuprofen (Advil 200 mg oral tablet) 2 tab Oral (given by mouth) Every 4 hours as needed for as needed for fever Unchanged levothyroxine (levothyroxine 175 mcg (0.175 mg) oral tablet) 1 tab Oral (given by mouth) Every day Unchanged losartan (losartan 100 mg oral tablet) 1 tab Oral (given by mouth) Every day Pharmacy Information [facility] #[id number]: [address], [place] [id number] [phone] Your Summary Your Diagnosis Sinusitis nasal Your Care Team Attending Physician - Marija Smith APRN Discharge Vitals Temperature??(Tympanic) 97.3 ??F (36.3 ??C) Heart Rate??(Peripheral) 65 Respiratory Rate?? 17 Blood Pressure?? 133/56?? Height?? 68.00 in (172.72 cm) Weight?? 260.04 lb (117.93 kg) BMI?? 39.53 Allergies No Known Medication Allergies Education Materials Sinus Infection, Adult A sinus infection, also called sinusitis, is inflammation of your sinuses. Sinuses are hollow spaces in the bones around your face. Your sinuses are located: ? Around your eyes. ? In the middle of your forehead. ? Behind your nose. ? In your cheekbones. Mucus normally drains out of your sinuses. When your nasal tissues become inflamed or swollen, mucus can become trapped or blocked. This allows bacteria, viruses, and fungi to grow, which leads to infection. Most infections of the sinuses are caused by a virus. A sinus infection can develop quickly. It can last for up to 4 weeks (acute) or for more than 12 weeks (chronic). A sinus infection often develops after a cold. What are the causes? This condition is caused by anything that creates swelling in the sinuses or stops mucus from draining. This includes: ? Allergies. ? Asthma. ? Infection from bacteria or viruses. ? Deformities or blockages in your nose or sinuses. ? Abnormal growths in the nose (nasal polyps). ? Pollutants, such as chemicals or irritants in the air. ? Infection from fungi. This is rare. What increases the risk? You are more likely to develop this condition if you: ? Have a weak body defense system (immune system). ? Do a lot of swimming or diving. ? Overuse nasal sprays. ? Smoke. What are the signs or symptoms? The main symptoms of this condition are pain and a feeling of pressure around the affected sinuses.Other symptoms include: ? Stuffy nose or congestion that makes it difficult to breathe through your nose. ? Thick yellow or greenish drainage from your nose. ? Tenderness, swelling, and warmth over the affected sinuses. ? A cough that may get worse at night. ? Decreased sense of smell and taste. ? Extra mucus that collects in the throat or the back of the nose (postnasal drip) causing a sore throat or bad breath. ? Tiredness (fatigue). ? Fever. How is this diagnosed? This condition is diagnosed based on: ? Your symptoms. ? Your medical history. ? A physical exam. ? Tests to find out if your condition is acute or chronic. This may include: ? Checking your nose for nasal polyps. ? Viewing your sinuses using a device that has a light (endoscope). ? Testing for allergies or bacteria. ? Imaging tests, such as an MRI or CT scan. In rare cases, a bone biopsy may be done to rule out more serious types of fungal sinus disease. How is this treated? Treatment for a sinus infection depends on the cause and whether your condition is chronic or acute. ? If caused by a virus, your symptoms should go away on their own within 10 days. You may be given medicines to relieve symptoms. They include: ? Medicines that shrink swollen nasal passages (decongestants). ? A spray that eases inflammation of the nostrils (topical intranasal corticosteroids). ? Rinses that help get rid of thick mucus in your nose (nasal saline washes). ? Medicines that treat allergies (antihistamines). ? Zjds-cld-efxxuhi pain relievers. ? If caused by bacteria, your health care provider may recommend waiting to see if your symptoms improve. Most bacterial infections will get better without antibiotic medicine. You may be given antibiotics if you have: ? A severe infection. ? A weak immune system. ? If caused by narrow nasal passages or nasal polyps, surgery may be needed. Follow these instructions at home: Medicines ? Take, use, or apply fahd-xqp-ekjhwzm and prescription medicines only as told by your health care provider. These may include nasal sprays. ? If you were prescribed an antibiotic medicine, take it as told by your health care provider. Do notstop taking the antibiotic even if you start to feel better. Hydrate and humidify ? Drink enough fluid to keep your urine pale yellow. Staying hydrated will help to thin your mucus. ? Use a cool mist humidifier to keep the humidity level in your home above 50%. ? Inhale steam for 10???15 minutes, 3???4 times a day, or as told by your health care provider. You can do this in the bathroom while a hot shower is running. ? Limit your exposure to cool or dry air. Rest ? Rest as much as possible. ? Sleep with your head raised (elevated). ? Make sure you get enough sleep each night. General instructions ? Apply a warm, moist washcloth to your face 3???4 times a day or as told by your health care provider. This will help with discomfort. ? Use nasal saline washes as often as told by your health care provider. ? Wash your hands often with soap and water to reduce your exposure to germs. If soap and water are not available, use hand superintendent [employer]. ? Do not smoke. Avoid being around people who are smoking (secondhand smoke). ? Keep all follow-up visits. This is important. Contact a health care provider if: ? You have a fever. ? Your symptoms get worse. ? Your symptoms do not improve within 10 days. Get help right away if: ? You have a severe headache. ? You have persistent vomiting. ? You have severe pain or swelling around your face or eyes. ? You have vision problems. ? You develop confusion. ? Your neck is stiff. ? You have trouble breathing. These symptoms may be an emergency. Get help right away. Call 911. ? Do not wait to see if the symptoms will go away. ? Do not drive yourself to the hospital. Summary ? A sinus infection is soreness and inflammation of your sinuses. Sinuses are hollow spaces in the bones around your face. ? This condition is caused by nasal tissues that become inflamed or swollen. The swelling traps or blocks the flow of mucus. This allows bacteria, viruses, and fungi to grow, which leads to infection. ? If you were prescribed an antibiotic medicine, take it as told by your health care provider. Do notstop taking the antibiotic even if you start to feel better. ? Keep all follow-up visits. This is important. This information is not intended to replace advice given to you by your health care provider. Make sure you discuss any questions you have with your health care provider. Document Revised: 04/03/2022 Document Reviewed: 04/03/2022 Elsevier Patient Education ?? 2022 [employer] Electronically Signed on: 03/26/2023 17:04 ESTSigned by:[facility] Patient Care team information Care Team Related Persons Name: EMMANUELLE CAZARES Name: EMMANUELLE CAZARES Name: EMMANUELLE CAZARES Name: CLEVELAND REYES Address: Home [address] [place] [phone] Address: Mailing [address] [place] [phone] Name: CLEVELAND REYES Address: [address] [phone] [facility]
--- OUTSIDE RECORDS SUMMARY | 2023-05-15 16:12 | XMS_ITS | Continuity of Care Document ---
Author Name Unknown Organization [facility] Address [address] [place] [address] Encounter [facility] FIN NBR [id number] Date(s): 11/22/22 - 11/22/22 [facility] [address] [place] [address]- Discharge Disposition: Home or Self Care Attending Physician: Philip Begum. KIRBY Admitting Physician: Philip Begum. KIRBY Allergies, Adverse Reactions, Alerts No Known Medication [...] # 10 tab, 0 Refill(s), Pharmacy: [facility] #[id number] Start Date: 11/22/22 Stop Date: 11/27/22 Status: [...] Known Problems Results Laboratory List Name Date CBC w/ Diff 11/22/22 Comprehensive Metabolic Panel 11/22/22 Automated Diff 11/22/22 Most recent to oldest [Reference Range]: 1 WBC [4.8-10.8 K/mcL] 12.8 K/mcL *HI* (11/22/22 12:45 PM) RBC [4.20-5.40 Million/mcL] 4.64 Million /mcL (11/22/22 12:45 PM) Neutro Auto [42.2-75.2 %] 84.8 % *HI* (11/22/22 12:45 PM) Lymph Auto [20.5-51.1 %] 7.1 % *LOW* (11/22/22 12:45 PM) [place] Auto [1.7-9.3 %] 7.3 % (11/22/22 12:45 PM) Basophil Auto [0.0-0.8 %] 0.4 % (11/22/22 12:45 PM) BUN [8-26 mg/dL] 13 mg/dL (11/22/22 12:45 PM) Glucose Level [74-106 mg/dL] 127 mg/dL *HI* (11/22/22 12:45 PM) Potassium Level [3.5-5.1 mmol/L] 3.3 mmo l/L *LOW* (11/22/22 12:45 PM) Baso Absolute [0.0-0.2 K/mcL] 0.0 K/mcL (11/22/22 12:45 PM) MCV [81.0-99.0 fL] 89.9 fL (11/22/22 12:45 PM) AST [15-41 IntlUnit/L] 20 IntlUnit/L (11/22/22 12:45 PM) ALT [14-54 IntlUnit/L] 32 IntlUnit/L (11/22/22 12:45 PM) MCHC [32.0-36.0 g/dL] 34.1 g/dL (11/22/22 12:45 PM) Osmolality [275-295 mOsm/kg] 266 mOsm/kg *LOW* (11/22/22 12:45 PM) Sodium Level [134-143 mmol/L] 132 mmol/L *LOW* (11/22/22 12:45 PM) Lymph Absolute [1.2-3.4 K/mcL] 0.9 K/mcL *LOW* (11/22/22 12:45 PM) Hct [37.0-47.0 %] 41.7 % (11/22/22 12:45 PM) Calcium Level [8.9-10.3 mg/dL] 9.5 mg/dL (11/22/22 12:45 PM) [place] Absolute [0.1-0.6 K/mcL] 0.9 K/mcL *HI* (11/22/22 12:45 PM) Albumin Level [3.5-5.0 g/dL] 4.3 g/dL (11/22/22 12:45 PM) Protein Total [6.5-8.1 g/dL] 8.2 g/dL *HI* (11/22/22:45 PM) MCH [27.0-31.0 pg] 30.6 pg (11/22/22 12:45 PM) Neutro Absolute [1.4-6.5 K/mcL] 10.9 K/m cL *HI* (11/22/22 12:45 PM) Bilirubin Total [0.2-1.2 mg/dL] 1.3 mg/d L *HI* (11/22/22 12:45 PM) Hgb [12.0-16.0 g/dL] 14.2 g/dL (11/22/22 12:45 PM) Alk Phos [38-130 IntlUnit/L] 61 IntlUnit /L (11/22/22 12:45 PM) MPV [7.4-10.4 fL] 9.0 fL (11/22/22 12:45 PM) Platelets [130-400 K/mcL] 223 K/mcL (11/22/22 12:45 PM) CO2 [22-32 mmol/L] 25 mmol/L (11/22/22 12:45 PM) Eos Absolute [0.0-0.2 K/mcL] 0.0 K/mcL (11/22/22 12:45 PM) Chloride Level [98-111 mmol/L] 97 mmol/L *LOW* (11/22/22 12:45 PM) RDW-CV [11.5-14.5 %] 13.2 % (11/22/22 12:45 PM) A/G Ratio 1.1 *NA* (11/22/22 12:45 PM) BUN/Creat Ratio [8.0-20.0] 16.0 (11/22/22 12:45 PM) Globulin 3.9 *NA* (11/22/22 12:45 PM) Imm Gran Absolute 0.04 *NA* (11/22/22 12:45 PM) Imm Gran Auto [0.0-0.5 %] 0.3 % (11/22/22 12:45 PM) Slide Review Not Indicated (11/22/22 12:45 PM) Creatinine Level [0.44-1.00 mg/dL] 0.81 mg/dL (11/22/22 12:45 PM) Anion Gap [3.0-12.0] 10.0 (11/22/22 12:45 PM) Eos, Auto [0.00-3.00 %] 0.10 % (11/22/22 12:45 PM) eGFR CKD-EPI [>=60 mL/min/1.73 m2] 85 mL /min/1.73 m2 (11/22/22 12:45 PM) Orders for Microbiology Reports Name Date Urine Culture 11/22/22 Microbiology Reports TEST:Urine Culture STATUS:Order in Progress BODY SITE: SOURCE:Urine, Clean Catch COLLECTED DATE/TIME:11/22/22 1:00 PM PRELIMINARY REPORT >100,000 cfu/ml Gram Negative Bacilli Identification and susceptibility to follow. Social History Social History Type Response Tobacco Never tobacco user T obacco Use:. Sex Patient Care team information Care Team Related Persons Name: EMMANUELLE CAZARES Name: EMMANUELLE CAZARES Name: CLEVELAND REYES Address: Home [address] [place] [phone] [facility] Name: CLEVELAND REYES Address: Home [address] [place] [phone] [facility]
[2023-05-15 19:13] LABS: Hemoglobin A1C 5.4 % (<5.7)
[2023-05-15 19:23] LABS: Anion Gap 10.4 mmol/L (3-11); BUN 19 mg/dL (7-18); CO2 27.6 mmol/L (21.0-32.0); CREATININE 0.7 mg/dL (0.55-1.02); Calcium 10.2 mg/dL (8.5-10.1); Chloride 99 mmol/L (98-107); Estimated GFR 100.81 (mL/min/1.73m2); Glucose 108 mg/dL (74-106); Potassium 3.7 mmol/L (3.5-5.1); Sodium 137 mmol/L (136-145); TSH (W/Ref FT4) 0.24 uIU/mL (0.36-3.74)
[2023-05-15 19:42] LABS: FREE T4 1.14 ng/dL (0.76-1.46)
== END 2023-05-15 16:08 | disposition home or self-care (01) ==
LOC: NCHCN 16:07
PROVIDERS: PCP Family Medicine; Visit Provider Family Medicine
DX: I10 Essential (primary) hypertension (principal); R73.03 Prediabetes; E03.9 Hypothyroidism, unspecified
CPT/HCPCS: 80048; 83036; 84439; 84443

== ENCOUNTER 2023-07-10 14:54 | Outpatient (REF) | payer BC, SELFPAY ==
[2023-07-10 15:53] LABS: Calcium 9.9 mg/dL (8.5-10.1); TSH (W/Ref FT4) 0.25 uIU/mL (0.36-3.74)
[2023-07-10 17:13] LABS: FREE T4 1.12 ng/dL (0.76-1.46)
== END 2023-07-10 14:55 | disposition home or self-care (01) ==
LOC: NCHCN 14:54
PROVIDERS: PCP Family Medicine; Referring Provider Family Medicine; Visit Provider Family Medicine
DX: E03.9 Hypothyroidism, unspecified (principal); E87.5 Hyperkalemia
CPT/HCPCS: 82310; 84439; 84443

== ENCOUNTER → 2023-08-12 02:52 | Outpatient (CLI) | payer BC, SELFPAY ==
--- NOTE | 2023-08-12 | DI.MAMMO_ITS ---
Exam(s) MAMMO SCREENING EXAM: MAMMO SCREENING CLINICAL HISTORY: SCREENING MAMMO FOR BREAST CANCER Z12.31 TECHNIQUE: Bilateral full field digital CC and MLO mammographic images were obtained with 3D tomosyn thesis and utilizing computer aided detection (CAD). COMPARISON: Available for comparison. FINDINGS: Masses/Architectural Distortion: None seen. Microcalcifications: No suspicious pleomorphic-type are seen. Skin Thickening/Nipple Retraction: None. IMPRESSION: 1. No significant interval change with no specific features of malignancy noted. 2. Unless there is more urgent need, screening mammography is recommended, as per [employer] guidelines. BI-RADS Category 1 - Negative Breast Density - Category B - Scattered areas of fibroglandular density Breast density category C or D implies that the patient has dense breast tissue. Dense breast tissue is very common and is not abnormal but dense breast tissue can make it harder to find cancer on a ma mmogram. Also, dense breast tissue may increase their breast cancer risk. This information about the result of the mammogram report was provided to the patient to raise their awareness. Use this report when you speak with the patient about their risks for breast cancer, which includes their family hist ory. At that time, you may recommend for more screening tests (Ultrasound or MRI) as they might be us eful based on their risk. A negative radiographic report should not delay biopsy if a dominant or clinically suspicious mass is present. Up to ten percent of cancers are not identified on mammography. A negative report may reinforce clinical impression. Adenosis and dense breasts may obscure an underlying neoplasm. False positive reports average 6 to 10%. Patient will receive a letter notifying them of these results.
== END ==
PROVIDERS: PCP Family Medicine; Visit Provider Family Medicine
DX: Z12.31 Encounter for screening mammogram for malignant neoplasm of breast (principal)
CPT/HCPCS: 77063; 77067

== ENCOUNTER 2023-10-29 17:57 | Outpatient (REF) | payer BC, SELFPAY ==
[2023-10-29 16:14] LABS: TSH (W/Ref FT4) 0.46 uIU/mL (0.36-3.74)
--- OUTSIDE RECORDS SUMMARY | 2023-10-29 18:00 | XMS_ITS | Continuity of Care Document ---
Author Name Unknown Organization [facility] Ambulatory Clinics Address [address] [place] [address] Encounter [facility] NBR [id number] Date(s): 05/27/23 - 05/27/23 [facility] Ambulatory Clinics [address] [place] [address]- Encounter Diagnosis Sinusitis(Discharge Diagnosis) - 05/27/23 Chronic sinusitis, unspecified(Final) - Discharge Disposition: Home or Self Care Allergies, Adverse Reactions, Alerts No Known Medication Allergies Functional Status 05/27/23 Other exposure to Infectious Disease Non e [...] hr, # 20 tab, 0 Refill(s), Pharmacy: [facility] #[id number], 172.72, cm, 03/26/23 16:40:00 EST, Height, 117.93, kg, 03/26/23 16:43:00 EST, Weight Dosing Start Date: 05/27/23 Stop Date: 06/06/23 Status: Ordered chlorthalidone 25 mg oral tablet 25 mg = 1 tab, Oral, Daily, # 30 tab, 0 Refill(s) Start Date: 05/08/22 Status: Ordered Cipro 500 mg oral tablet 500 mg = 1 tab, Oral, every 12 hr, # 10 tab, 0 Refill(s), Pharmacy: [facility] #[id number] Start Date: 11/22/22 Stop Date: 11/27/22 Status: Ordered Cipro 500 mg oral tablet 500 mg = 1 tab, Oral, every 12 hr, # 4 tab, 0 Refill(s), Pharmacy: [facility] #[id number], 172, cm, 11/24/22 7:47:00 EDT, Height/Length Dosing, [...] 1 Temperature Tympanic [36.6-38.1 Deg C] 3 8.3 Deg C *HI* (05/27/23 9:50 AM) Peripheral Pulse Rate [60-100 bpm] 99 bp m (05/27/23 9:50 AM) Respiratory Rate [12-24 br/min] 17 br/mi n (05/27/23 9:50 AM) Blood Pressure [90-140/60-90 mmHg] 152/8 3mmHg *HI* (05/27/23 9:50 AM) Mean Arterial Pressure, Cuff [70-110 mmH g] 106 mmHg (05/27/23 9:50 AM) Social History Social History Type Response Tobacco Never tobacco user T obacco Use:. Sex Hospital Discharge Instructions Patient Education 05/27/2023 09:04:44 Sinus Infection, Adult Sinus Infection, Adult A [...] ??? Medicines that treat allergies (antihistamines). ??? Grqi-voc-oajwaqe pain relievers. ??? If caused by bacteria, [...] home: Medicines ??? Take, use, or apply sbfr-ayy-uhgpnru and prescription medicines only as told by [...] and water are not available, use hand ironer. ??? Do not smoke. Avoid being around [...] provider. Document Revised: 04/03/2022 Document Reviewed: 04/03/2022 [employer] Patient Education ?? 2022 [employer]. Physician Outpatient Note * Marija Smith, STACKER [employer] SORTER OPERATOR: PERFORM Event Display: Office Clinic Note Physician Authored Date: [id number] LINK REYES :1965 Age:57 years Sex:Female Visit Date:05/27/2023 Chief Complaint fever, congestion, bilateral ear pain x2 days. pt states she had cold chills and 101 fever yesterday. last dose of tylenol was around 5am this morning History of Present Illness Patient is a 57-year-old female who presents today with a chief complaint of bilateral ear pain andsinus congestion. ??She states that??she had a URI approximately week and a half ago, she states noting over the weekend spiking fever, increased ear pressure and sinus??pressure. Review of Systems see hpi Physical Exam Vitals & Measurements T:??38.3?C ??(Tympanic)?? HR:??99??(Peripheral)?? RR:??17?? BP:??152/83?? SpO2:??97%?? Pain Score:??8?? General: Well-appearing, no acute distress, alert and oriented x3. Skin: No concerning lesions in examined areas. Head: Normal cephalic without trauma or injury. Neck: Supple, nontender, normal range of motion Eye: Pupils reactive. ??Conjunctiva clear. Sclera nonicteric. ??No swelling, obvious foreign bodies. ??Extraocular movement intact. ENT ear: Normal external, canal clear, TMs erythematous bilaterally nose: No discharge, normal mucosa, no swelling. ??Sinuses:??Bilateral maxillary tenderness oropharynx: Normal external, mucosal without mass, lesions, ulcerations. Cardio: Regular rate and rhythm. ??No murmur, rubs, or gallops. Respiratory: Clear to auscultation bilaterally. ??No wheezes, rales, rhonchi. Medical Decision Making: Patient was evaluated for sinus pressure and ear pain.?? Exam does reflect acute sinusitis. ??She will be started on Augmentin for 10 days. ??I encouraged her to use cbad-dyl-rupmxhg??analgesia and decongestants. ??She should follow-up with her primary care for lack of improvement Assessment/Plan 1.??Sinusitis??J32.9 Orders: amoxicillin-clavulanate 875 mg-125 mg oral tablet, 1 tab, Oral, every 12 hr, # 20 tab, 0 Refill(s),Pharmacy: [facility] #[id number], 172.72, cm, 03/26/23 16:40:00 EST, Height, 117.93, kg, 03/26/23 16:43:00EST, Weight Dosing Patient Education Sinus Infection, Adult Problem List/Past Medical History Ongoing No chronic problems Historical No qualifying data Medications Advil 200 mg oral tablet, 400 mg= 2 tab, Oral, every 4 hr, PRN amLODIPine 10 mg oral tablet, 10 mg= 1 tab, Oral, Daily amoxicillin-clavulanate 875 mg-125 mg oral tablet, 1 tab, Oral, every 12 hr chlorthalidone 25 mg oral tablet, 25 mg= 1 tab, Oral, Daily Cipro 500 mg oral tablet, 500 mg= 1 tab, Oral, every 12 hr Cipro 500 mg oral tablet, 500 mg= 1 tab, Oral, every 12 hr levothyroxine 175 mcg (0.175 mg) oral tablet, 175 mcg= 1 tab, Oral, Daily losartan 100 mg oral tablet, 100 mg= 1 tab, Oral, Daily Mucinex Allergies No Known Medication Allergies Social History Electronic Cigarette/Vaping Electronic Cigarette Use: Never. Tobacco Never tobacco user Tobacco Use:. Electronically Signed on 05/27/23 10:11 AM Marija Smith APRN Outpatient Summary note * Marija Smith APRN: PERFORM Event Display: Ambulatory Patient Summary Authored Date: [id number] LINK REYES :1965 Age:57 years Sex:Female Visit Date:05/27/2023 Ambulatory Visit Instructions We would like to thank you for allowing us to assist you with your healthcare needs. The following includes patient education materials and information regarding your injury/illness. Medications What How Much When Why Instructions Unchanged amLODIPine (amLODIPine 10 mg oral tablet) 1 tab Oral (given by mouth) Every day Unchanged amoxicillin-clavulanate (amoxicillin-clavulanate 875 mg-125 mg oral tablet) 1 tab Oral (given by mouth) Every 12 hours Duration: 10 Days Pickup at [facility] #[id number] Unchanged chlorthalidone (chlorthalidone 25 mg oral tablet) [...] (given by mouth) Every day Pharmacy Information [facility] #[id number]: [address], [place] [phone] Your Summary Your Diagnosis Sinusitis Discharge Vitals Temperature??(Tympanic) 100.9 ??F (38.3 ??C) Heart Rate??(Peripheral) 99 Respiratory Rate?? 17 Blood Pressure?? 152/83?? Allergies No Known Medication Allergies Education Materials [...] ? Medicines that treat allergies (antihistamines). ? Ytpy-idc-ctrmhen pain relievers. ? If caused by bacteria, [...] home: Medicines ? Take, use, or apply ekui-sun-cqpkmxl and prescription medicines only as told by [...] and water are not available, use hand ironer. ? Do not smoke. Avoid being around [...] provider. Document Revised: 04/03/2022 Document Reviewed: 04/03/2022 [employer] Patient Education ?? 2022 [employer] Electronically Signed on: 05/27/2023 10:05 ESTSigned by:MARIA LUZ Patient Care team information Care Team Related Persons Name: SAGEEMMANUELLE Name: SAGE EMMANUELLE Name: EMMANUELLE CAZARES Name: C[place]AND REYES Address: Home [address] [place] [phone] [facility] Name: CLEVELAND REYES Address: Home [address] [place] [phone] Address: [address]ailing [address] [place] [phone]
== END 2023-10-29 17:58 | disposition home or self-care (01) ==
LOC: NCHCN 17:57
PROVIDERS: PCP Family Medicine; Visit Provider Family Medicine
DX: E03.9 Hypothyroidism, unspecified (principal)
CPT/HCPCS: 84443

== ENCOUNTER 2024-04-06 02:30 | Outpatient (CLI) | payer BC, SELFPAY ==
[2024-04-06 10:46] LABS: Hemoglobin A1C 5.3 % (<5.7)
[2024-04-06 11:24] LABS: ALT 32 U/L (14-59); AST 19 U/L (15-37); Albumin 4.1 g/dL (3.4-5.0); Alkaline Phosphatase 66 U/L (46-116); Anion Gap 9.1 mmol/L (3-11); BUN 22 mg/dL (7-18); CO2 27.9 mmol/L (21.0-32.0); CREATININE 0.8 mg/dL (0.55-1.02); Calcium 9.5 mg/dL (8.5-10.1); Chloride 101 mmol/L (98-107); Estimated GFR 85.35 (mL/min/1.73m2); Glucose 106 mg/dL (74-106); Potassium 3.4 mmol/L (3.5-5.1); Sodium 138 mmol/L (136-145); TSH (W/Ref FT4) 2.88 uIU/mL (0.36-3.74); Total Protein 7.8 g/dL (6.4-8.2)
[2024-04-06 14:15] LABS: Calculated LDL 136 mg/dL (<100); Cholesterol 222 mg/dL (<200); HDL Cholesterol 67 mg/dL (40-60); Triglyceride 99 mg/dL (<150)
== END 2024-04-06 02:31 | disposition home or self-care (01) ==
PROVIDERS: PCP Family Medicine; Visit Provider Family Medicine
DX: I10 Essential (primary) hypertension (principal); R73.03 Prediabetes; E03.9 Hypothyroidism, unspecified; Z13.220 Encounter for screening for lipoid disorders
CPT/HCPCS: 36415; 80053; 80061; 83036; 84443